=== PATIENT | male | born 1945 | race Caucasian/White ===

== ENCOUNTER 2018-03-17 23:12 | Emergency (ER) | payer MEDICARE, BC ==
[2018-03-18] MEDS ORDERED: Aspirin 81 mg CHEW TAB* 81 MG TAB.CHEW PO ONE (00:23)
--- NOTE | 2018-03-18 00:28 | ED ---
HPI Chest Pain - HPI Summary HPI Summary: This is onelia Degroot documenting for attending Toma Braga MD. This patient is a 72 year old M presenting to ED with a chief complaint of substernal CP since 2214. The CC is described as non-radiating, pressure, lasting 10 minutes. Currently, he has no pain. The patient rates the pain 0/10 in severity. Symptoms aggravated by nothing. Symptoms alleviated by nothing. Patient reports a flushed face and dizziness. Patient denies difficulty breathing, cold sweat, and cough. - History of Current Complaint Chief Complaint: EDChestPainROMI Time Seen by Provider: 03/18/18 00:11 Hx Obtained From: Patient Onset/Duration: Started Hours Ago - at 2214, Resolved - patient is pain free Timing: Lasting Minutes - 10 minutes Current Severity: None Pain Intensity: 0 Pain Scale Used: 0-10 Numeric Chest Pain Location: Discrete at: - substernal CP Chest Pain Radiates: No Character: Pressure/Squeezing Aggravating Factor(s): Nothing Alleviating Factor(s): Nothing Associated Signs and Symptoms: Positive: Other: - Patient reports a flushed face and dizziness. Patient denies difficulty breathing, cold sweat, and cough. - Allergy/Home Medications Allergies/Adverse Reactions: Allergies Allergy/AdvReac Type Severity Reaction Status Date / Time Sulfa (Sulfonamide Allergy Rash Verified 03/17/18 23:15 Antibiotics) PMH/Surg Hx/FS Hx/Imm Hx Endocrine/Hematology History: Denies: Hx Diabetes Cardiovascular History: Denies: Hx Coronary Artery Disease, Hx Hypertension Infectious Disease History: No Infectious Disease History: Denies: Traveled Outside the [place] in Last 30 Days - Family History Known Family History: Positive: Other Family History: Heart attack brother at age 53 - Social History Alcohol Use: Daily - Wine Hx Substance Use: No Hx Tobacco Use: No Review of Systems Positive: Other - flushed face; denies cold sweat Positive: Chest Pain - substernal CP Positive: Other - denies difficulty breathing. Negative: Cough Neurological: Other - dizziness All Other Systems Reviewed And Are Negative: Yes Physical Exam - Summary Physical Exam Summary: VITAL SIGNS: Reviewed. GENERAL: Patient is a well-developed and nourished MALE who is lying comfortable in the stretcher. Patient is not in any acute respiratory distress. HEAD AND FACE: No signs of trauma. No ecchymosis, hematomas or skull depressions. No sinus tenderness. EYES: PERRLA, EOMI x 2, No injected conjunctiva, no nystagmus. EARS: Hearing grossly intact. Ear canals and tympanic membranes are within normal limits. MOUTH: Oropharynx within normal limits. NECK: Supple, trachea is midline, no adenopathy, no JVD, no carotid bruit, no c- spine tenderness, neck with full ROM. CHEST: Symmetric, no tenderness at palpation LUNGS: Clear to auscultation bilaterally. No wheezing or crackles. CVS: Regular rate and rhythm, S1 and S2 present, no murmurs or gallops appreciated. ABDOMEN: Soft, non-tender. No signs of distention. No rebound no guarding, and no masses palpated. Bowel sounds are normal. EXTREMITIES: FROM in all major joints, no edema, no cyanosis or clubbing. NEURO: Alert and oriented x 3. No acute neurological deficits. Speech is normal and follows commands. SKIN: Dry and warm Triage Information Reviewed: Yes Vital Signs On Initial Exam: Initial Vitals Temp Pulse Resp BP Pulse Ox 97.9 F 101 18 115/67 93 03/17/18 23:15 03/17/18 23:15 03/17/18 23:15 03/17/18 23:15 03/17/18 23:15 Vital Signs Reviewed: Yes Diagnostics - Vital Signs Vital Signs Temp Pulse Resp BP Pulse Ox 03/17/18 23:15 97.9 F 101 18 115/67 93 - Laboratory Result Diagrams: 03/18/18 00:36 03/18/18 00:36 Lab Statement: Any lab studies that have been ordered have been reviewed, and results considered in the medical decision making process. - Radiology CXR Radiology Interpretation Completed By: ED Physician - No acute processes. Pending radiologist official interpretation. - EKG 2323 Cardiac Rate: NL - 99 BPM EKG Rhythm: Sinus Rhythm EKG Interpretation: RBBB Re-Evaluation - Re-Evaluation First Eval Re-Evaluation Time: 02:07 Comment: Bloodwork came back normal. The patient is asymptomatic in the ED and is anxious to go home. The patient was advised to stay for second trop around 0500. Second Eval Re-Evaluation Time: 05:04 Comment: The patient was asymptomatic in the ER. Discussed plan for discharge. Chest Pain Course/Dx - Course Assessment/Plan: This patient is a 72 yo M with no PMHx. He is in the ED for a 10 minute episode of substernal CP. He appears flushed and has no other sx. The CP is non-radiating. The EKG was unremarkable. The 1st and 2nd trop was negative. The patient is pain free here in the ED. Given ASA. The patient will be discharged with instructions to follow up with cardio for a stress test as an outpatient. - Chest Pain Differential Diagnosis/HQI/PQRI: Other: - atypical CP - Diagnoses Provider Diagnoses: Atypical chest pain Discharge - Sign-Out/Discharge Documenting (check all that apply): Patient Departure - Discharge Plan Condition: Stable Disposition: HOME Patient Education Materials: Chest Pain (ED) Referrals: Francis Lundberg MD [Primary Care Provider] - (Follow up with your primary care physician in 1-2 days.) Additional Instructions: I RECOMMEND FOR YOU TO TAKE A STRESS TEST AN OUTPATIENT. RETURN TO THE EMERGENCY DEPARTMENT FOR CHANGING OR WORSENING SYMPTOMS.
[2018-03-18 00:50] LABS: ABS Basophils 0 10^3/ul (0-0.2); ABS Eosinophils 0.2 10^3/ul (0-0.6); ABS Lymphocytes 1.3 10^3/ul (1.0-4.8); ABS Monocytes 0.7 10^3/ul (0-0.8); ABS Neutrophils 3.5 10^3/ul (1.5-7.7); ABS Nucleated RBC 0 10^3/ul; Eosinophil % 3.3 % (0-6); Hematocrit 43 % (42-52); Lymphocyte % 22.4 % (25-47); Mean Corpuscular HGB Conc 35 g/dl (31-36); Mean Corpuscular Hemoglobin 35 pg (27-31); Mean Corpuscular Volume 99 fL (80-94); Mean Platelet Volume 7.2 um3 (7.4-10.4); Nucleated Red Blood Cells % 0; Platelet Count 182 10^3/ul (150-450); Red Blood Count 4.36 10^6/ul (4.00-5.40); Red Cell Distribution Width 13 % (10.5-15); White Blood Count 5.8 10^3/ul (3.5-10.8)
[2018-03-18 00:58] LABS: INR 0.87 (0.77-1.02)
[2018-03-18 01:08] LABS: EGFR Non-African American 68.3 (>60)
[2018-03-18 05:18] VITALS: BP 121/78
--- NOTE | 2018-03-18 07:39 | RAD ---
HISTORY: CP, chest pain COMPARISONS: April 04, 2012 VIEWS: 1: frontal portable view of the chest at 12:41 AM FINDINGS: LINES AND TUBES: None. CARDIOMEDIASTINAL SILHOUETTE: The cardiomediastinal silhouette is normal for portable technique. PLEURA: The costophrenic angles are sharp. No pleural abnormalities are noted. LUNG PARENCHYMA: The lungs are clear. ABDOMEN: The upper abdomen is clear. There is no subphrenic gas. BONES AND SOFT TISSUES: Degenerative changes are noted IMPRESSION: NO ACTIVE CARDIOPULMONARY DISEASE. R0
== END 2018-03-18 05:20 | disposition home or self-care (01) ==
LOC: ED 23:12
DX: R07.89 Other chest pain (principal); R42 Dizziness and giddiness
CPT/HCPCS: 36415; 71045; 80053; 82550; 84484; 85025; 85610; 85730; 93005; 99283; A9270-GY

== ENCOUNTER 2018-03-30 20:31 | Emergency (ER) | payer MEDICARE, BC ==
[2018-03-30 22:19] LABS: ABS Basophils 0.1 10^3/ul (0-0.2); ABS Eosinophils 0.2 10^3/ul (0-0.6); ABS Lymphocytes 1.3 10^3/ul (1.0-4.8); ABS Monocytes 0.6 10^3/ul (0-0.8); ABS Nucleated RBC 0 10^3/ul; Hematocrit 43 % (42-52); Hemoglobin 15.2 g/dl (14.0-18.0); Lymphocyte % 24.6 % (25-47); Mean Corpuscular HGB Conc 35 g/dl (31-36); Mean Corpuscular Hemoglobin 35 pg (27-31); Mean Corpuscular Volume 100 fL (80-94); Mean Platelet Volume 7.3 um3 (7.4-10.4); Nucleated Red Blood Cells % 0.1; Platelet Count 198 10^3/ul (150-450); Red Blood Count 4.33 10^6/ul (4.00-5.40); Red Cell Distribution Width 13 % (10.5-15); White Blood Count 5.2 10^3/ul (3.5-10.8)
[2018-03-30 22:24] LABS: INR 0.92 (0.77-1.02)
[2018-03-30 22:30] LABS: EGFR Non-African American 66.1 (>60)
--- NOTE | 2018-03-31 03:46 | ED ---
HPI Chest Pain - HPI Summary HPI Summary: Patient complains of one episode of bilateral chest pressure radiating to bilateral upper extremities starting at 6 PM, that lasted 10-15 minutes. Patient was at rest, took ASA 324 mg at home. Symptoms have resolved, no active CP here in the ED. Patient evaluated here in the ED for same symptoms 2 weeks ago. Denies SOB, fever, cough, sore throat, N/V's /D, diaphoresis, abdominal pain, change in urine or BM. Patient had been hiking earlier in the park without any CP or SOB. Chest pain came on 2-3 hours after exertion. Medical history is none. Never smoker. Occasional EtOH, denies any legal or illegal stimulants. - History of Current Complaint Chief Complaint: EDChestPainROMI Time Seen by Provider: 03/30/18 21:45 Hx Obtained From: Patient Onset/Duration: Started Hours Ago Timing: Lasting Minutes Initial Severity: Mild Current Severity: Mild Pain Intensity: 1 Pain Scale Used: 0-10 Numeric Chest Pain Location: Left Anterior, Right Anterior Chest Pain Radiates: Yes Chest Pain Radiates To:: Shoulder Character: Pressure/Squeezing Aggravating Factor(s): Nothing Alleviating Factor(s): Nothing Associated Signs and Symptoms: Positive: Chest Pain - Allergy/Home Medications Allergies/Adverse Reactions: Allergies Allergy/AdvReac Type Severity Reaction Status Date / Time Sulfa (Sulfonamide Allergy Rash Verified 03/30/18 20:47 Antibiotics) Home Medications: Home Medications Lisinopril 20 mg PO DAILY 03/31/18 [History Confirmed 03/31/18] PMH/Surg Hx/FS Hx/Imm Hx Endocrine/Hematology History: Denies: Hx Anticoagulant Therapy, Hx Diabetes Cardiovascular History: Denies: Hx Cardiac Arrest, Hx Coronary Artery Disease, Hx Hypertension History: Denies: Hx Dialysis Neurological History: Denies: Hx CVA Infectious Disease History: No Infectious Disease History: Denies: Traveled Outside the [place] in Last 30 Days - Family History Known Family History: Positive: Other Family History: Heart attack brother at age 53 - Social History Alcohol Use: Daily Hx Substance Use: No Substance Use Type: Reports: None Hx Tobacco Use: No Smoking Status (MU): Never Smoked Tobacco Review of Systems Constitutional: Negative Eyes: Negative ENT: Negative Positive: Chest Pain Respiratory: Negative Gastrointestinal: Negative Genitourinary: Negative Musculoskeletal: Negative Skin: Negative Neurological: Negative Psychological: Normal All Other Systems Reviewed And Are Negative: Yes Physical Exam - Summary Physical Exam Summary: Chest nontender to palpation. No pain with use of pectoral muscles. Triage Information Reviewed: Yes Vital Signs On Initial Exam: Initial Vitals Temp Pulse Resp BP Pulse Ox 97.6 F 103 18 112/71 94 03/30/18 20:42 03/30/18 20:42 03/30/18 20:42 03/30/18 20:42 03/30/18 20:42 Vital Signs Reviewed: Yes Appearance: Positive: Well-Appearing Skin: Positive: Warm Head/Face: Positive: Normal Head/Face Inspection Eyes: Positive: Normal Neck: Positive: Supple Respiratory/Lung Sounds: Positive: Clear to Auscultation Cardiovascular: Positive: Normal Abdomen Description: Positive: Nontender Musculoskeletal: Positive: Normal Neurological: Positive: Normal Psychiatric: Positive: Normal AVPU Assessment: Alert - Cadwell Coma Scale Best Eye Response: 4 - Spontaneous Best Motor Response: 6 - Obeys Commands Best Verbal Response: 5 - Oriented Coma Scale Total: 15 Diagnostics - Vital Signs Vital Signs Temp Pulse Resp BP Pulse Ox 03/31/18 01:00 75 9 94 03/31/18 00:46 77 17 128/85 95 03/31/18 00:16 78 15 136/81 97 03/31/18 00:00 79 19 94 03/30/18 23:46 80 18 130/82 95 03/30/18 23:16 79 14 133/75 95 03/30/18 23:00 84 12 95 03/30/18 22:46 80 13 121/82 95 03/30/18 22:16 85 8 134/82 94 03/30/18 22:00 90 14 94 03/30/18 21:46 92 20 143/86 94 03/30/18 20:42 97.6 F 103 18 112/71 94 - Laboratory Lab Results: Lab Results 03/30/18 03/30/18 03/30/18 Range/Units 22:04 22:04 22:04 WBC 5.2 (3.5-10.8) 10^3/ul RBC 4.33 (4.00-5.40) 10^6/ul Hgb 15.2 (14.0-18.0) g/dl Hct 43 (42-52) % MCV 100 H (80-94) fL MCH 35 H (27-31) pg MCHC 35 (31-36) g/dl RDW 13 (10.5-15) % Plt Count 198 (150-450) 10^3/ul MPV 7.3 L (7.4-10.4) um3 Neut % (Auto) 59.0 (38-83) % Lymph % (Auto) 24.6 L (25-47) % [place] % (Auto) 11.2 H (0-7) % Eos % (Auto) 4.0 (0-6) % Baso % (Auto) 1.2 (0-2) % Absolute Neuts (auto) 3.0 (1.5-7.7) 10^3/ul Absolute Lymphs (auto) 1.3 (1.0-4.8) 10^3/ul Absolute Monos (auto) 0.6 (0-0.8) 10^3/ul Absolute Eos (auto) 0.2 (0-0.6) 10^3/ul Absolute Basos (auto) 0.1 (0-0.2) 10^3/ul Absolute Nucleated RBC 0 10^3/ul Nucleated RBC % 0.1 INR (Anticoag Therapy) 0.92 (0.77-1.02) Sodium 140 (135-145) mmol/L Potassium 3.7 (3.5-5.0) mmol/L Chloride 107 (101-111) mmol/L Carbon Dioxide 23 (22-32) mmol/L Anion Gap 10 (2-11) mmol/L BUN 18 (6-24) mg/dL Creatinine 1.09 (0.67-1.17) mg/dL Est GFR ( Amer) 80.0 (>60) Est GFR (Non-Af Amer) 66.1 (>60) BUN/Creatinine Ratio 16.5 (8-20) Glucose 93 (70-100) mg/dL Lactic Acid (0.5-2.0) mmol/L Calcium 9.2 (8.6-10.3) mg/dL Total Bilirubin 0.70 (0.2-1.0) mg/dL AST 28 (13-39) U/L ALT 26 (7-52) U/L Alkaline Phosphatase 32 L (34-104) U/L Troponin I 0.01 (<0.04) ng/mL B-Natriuretic Peptide ( - 100) pg/mL Total Protein 7.3 (6.4-8.9) g/dL Albumin 4.4 (3.2-5.2) g/dL Globulin 2.9 (2-4) g/dL Albumin/Globulin Ratio 1.5 (1-3) TSH 4.80 (0.34-5.60) mcIU/mL 03/30/18 03/30/18 03/31/18 Range/Units 22:04 22:04 00:42 WBC (3.5-10.8) 10^3/ul RBC (4.00-5.40) 10^6/ul Hgb (14.0-18.0) g/dl Hct (42-52) % MCV (80-94) fL MCH (27-31) pg MCHC (31-36) g/dl RDW (10.5-15) % Plt Count (150-450) 10^3/ul MPV (7.4-10.4) um3 Neut % (Auto) (38-83) % Lymph % (Auto) (25-47) % [place] % (Auto) (0-7) % Eos % (Auto) (0-6) % Baso % (Auto) (0-2) % Absolute Neuts (auto) (1.5-7.7) 10^3/ul Absolute Lymphs (auto) (1.0-4.8) 10^3/ul Absolute Monos (auto) (0-0.8) 10^3/ul Absolute Eos (auto) (0-0.6) 10^3/ul Absolute Basos (auto) (0-0.2) 10^3/ul Absolute Nucleated RBC 10^3/ul Nucleated RBC % INR (Anticoag Therapy) (0.77-1.02) Sodium (135-145) mmol/L Potassium (3.5-5.0) mmol/L Chloride (101-111) mmol/L Carbon Dioxide (22-32) mmol/L Anion Gap (2-11) mmol/L BUN (6-24) mg/dL Creatinine (0.67-1.17) mg/dL Est GFR ( Amer) (>60) Est GFR (Non-Af Amer) (>60) BUN/Creatinine Ratio (8-20) Glucose (70-100) mg/dL Lactic Acid 1.8 (0.5-2.0) mmol/L Calcium (8.6-10.3) mg/dL Total Bilirubin (0.2-1.0) mg/dL AST (13-39) U/L ALT (7-52) U/L Alkaline Phosphatase (34-104) U/L Troponin I 0.02 (<0.04) ng/mL B-Natriuretic Peptide 13 ( - 100) pg/mL Total Protein (6.4-8.9) g/dL Albumin (3.2-5.2) g/dL Globulin (2-4) g/dL Albumin/Globulin Ratio (1-3) TSH (0.34-5.60) mcIU/mL Result Diagrams: 03/30/18 22:04 03/30/18 22:04 Lab Statement: Any lab studies that have been ordered have been reviewed, and results considered in the medical decision making process. - Radiology cxr Xray Interpretation: No Acute Changes Radiology Interpretation Completed By: ED Physician - EKG 1 Cardiac Rate: NL EKG Rhythm: Sinus Rhythm Ectopy: None EKG Interpretation: RBBB Chest Pain Course/Dx - Course Course Of Treatment: Patient complains of one episode of bilateral chest pressure radiating to bilateral upper extremities starting at 6 PM, that lasted 10-15 minutes. Patient was at rest, took ASA 324 mg at home. Symptoms have resolved, no active CP here in the ED. Patient evaluated here in the ED for same symptoms 2 weeks ago. Denies SOB, fever, cough, sore throat, N/V's /D , diaphoresis, abdominal pain, change in urine or BM. Patient had been hiking earlier in the park without any CP or SOB. Chest pain came on 2-3 hours after exertion. Medical history is none. Never smoker. Occasional EtOH, denies any legal or illegal stimulants. Physical exam: Chest nontender to palpation. No pain with use of pectoral muscles. Vital signs within normal limits and stable. Chest x-ray negative. Labs and imaging unremarkable. Serial cardiac troponin is negative. Heart score 2. Patient was seen here 03/17/18 for same symptoms and was advised to get stress test. Will be advised to do same again - Diagnoses Provider Diagnoses: Chest pain Discharge - Sign-Out/Discharge Documenting (check all that apply): Patient Departure - Discharge Plan Condition: Stable Disposition: HOME Patient Education Materials: Chest Pain (ED) Referrals: Francis Lundberg MD [Primary Care Provider] - Additional Instructions: Follow-up with primary care to arrange for stress test for further evaluation. Return to the ED for any new or worsening symptoms - Billing Disposition and Condition Condition: STABLE Disposition: Home
[2018-03-31 04:40] VITALS: BP 142/81
--- NOTE | 2018-03-31 07:25 | RAD ---
INDICATION: Chest pain. COMPARISON: Comparison is made with a prior study from March 18, 2018. TECHNIQUE: A portable view of the chest was obtained. FINDINGS: Cardiac and mediastinal contours appear to be within normal limits. The lungs are underinflated and grossly clear. No pleural effusion is seen. IMPRESSION: NO EVIDENCE FOR ACUTE DISEASE. R0
== END 2018-03-31 04:40 | disposition home or self-care (01) ==
LOC: ED 20:31
DX: R07.9 Chest pain, unspecified (principal); M25.519 Pain in unspecified shoulder
CPT/HCPCS: 36415; 71045; 80053; 83605; 83880; 84443; 84484; 85025; 85610; 93005; 99283

== ENCOUNTER 2018-04-18 20:51 | Inpatient (IN) | payer MEDICARE, BC ==
[2018-04-18] MEDS ORDERED: Amiodarone 360 MG IVPREMIX* 360 MG/200 ML BAG IV ONE ×2 (21:12→21:16)
[2018-04-18] MEDS ORDERED: Amiodarone IV VIAL* 3 ML ONE (21:12)
--- NOTE | 2018-04-18 21:14 | ED ---
HPI Chest Pain - HPI Summary HPI Summary: A 72 y/o male presents to ED c/o chest pain reaching / in severity. In the ED room, the patient has a pulse of 105 BPM, O2 saturation of 92% and blood pressure of 118/69. As per triage, "Pt stated that he feels that his heart acts up and then feels sweaty and dizzy. Pt states that he has had this happened before and is scheduled for stress test tomorrow morning. Pt seen here for same ". According to the patient, he is experiencing chest pain that he characterizes as pressure. Pt denies any SOB. His is here with him, MD will come back when she comes to ED room. As per nursing staff, patient stated he was dizzy, sweaty and stated his face was flushed during EKG. Upon arrival to ED, patient was taken to area by aid for EKG. At this point the EKG revealed monomorphic tachycardia. Patient was moved immediately to room 14 in ED. Upon arrival to room 14, patient was having normal sinus rhythm of 104. Amiodarone and bolus drip was started as per protocol. In the ED room, the patient has a pulse of 88 BPM, O2 saturation of 96% and blood pressure of 121/71. As per , this is the patients 3rd trip to ED. The patient was sitting on his Lazy boy chair at home when he started flushing. He also was diaphoretic (slightly) and felt "weirdness" in his chest. They decided to wait 20 minutes because they thought the symptoms would go away but it did not. When he stood up to go to [facility], the patient experienced more dizziness. Denies any SOB or LOC. Last two times patient was in [facility] was for pretty much same symptoms. First time (03/23) and second time (03/30) with both times pain not being very long, lasting approximately 10 minutes. Today, his chest pain has not went away and he experiences neck pain. Patient goes to Chiropractor for neck and shoulder issues, however, does not need to go as often. Patient still takes Lisinopril, no daily Aspirin. No PMHx of heart issues. - History of Current Complaint Chief Complaint: EDChestPainROMI Hx Obtained From: Patient Onset/Duration: Started Hours Ago, Still Present Timing: Constant Initial Severity: Mild Current Severity: Mild Pain Intensity: 1 Pain Scale Used: 0-10 Numeric Chest Pain Location: Diffuse Chest Pain Radiates: No Character: Pressure/Squeezing Aggravating Factor(s): Nothing Alleviating Factor(s): Nothing Associated Signs and Symptoms: Positive: Chest Pain, Dizziness. Negative: Shortness of Breath, Fever - Allergy/Home Medications Allergies/Adverse Reactions: Allergies Allergy/AdvReac Type Severity Reaction Status Date / Time Sulfa (Sulfonamide Allergy Rash Verified 04/18/18 21:00 Antibiotics) Home Medications: Home Medications Lisinopril 20 mg PO DAILY 04/18/18 [History Confirmed 04/18/18] PMH/Surg Hx/FS Hx/Imm Hx Endocrine/Hematology History: Denies: Hx Anticoagulant Therapy, Hx Diabetes Cardiovascular History: Denies: Hx Cardiac Arrest, Hx Coronary Artery Disease, Hx Hypertension History: Denies: Hx Dialysis Neurological History: Denies: Hx CVA - Surgical History Surgery Procedure, Year, and Place: As per , no prior surgeries noted. Infectious Disease History: No Infectious Disease History: Denies: Traveled Outside the [place] in Last 30 Days - Family History Known Family History: Positive: Other Family History: Heart attack brother at age 53 - Social History Alcohol Use: Daily Hx Substance Use: No Substance Use Type: Reports: None Hx Tobacco Use: No Smoking Status (MU): Never Smoked Tobacco Review of Systems Positive: Skin Diaphoresis. Negative: Fever Positive: Chest Pain Negative: Shortness Of Breath Positive: Other - POSITIVE: Neck pain Neurological: Other - POSITIVE: Dizziness; NEGATIVE: LOC All Other Systems Reviewed And Are Negative: Yes Physical Exam - Summary Physical Exam Summary: VITAL SIGNS: Reviewed. GENERAL: Patient is a well-developed and nourished male who is lying comfortable in the stretcher. Patient is not in any acute respiratory distress. HEAD AND FACE: No signs of trauma. No ecchymosis, hematomas or skull depressions. No sinus tenderness. EYES: PERRLA, EOMI x 2, No injected conjunctiva, no nystagmus. EARS: Hearing grossly intact. Ear canals and tympanic membranes are within normal limits. MOUTH: Oropharynx within normal limits. NECK: Supple, trachea is midline, no adenopathy, no JVD, no carotid bruit, no c- spine tenderness, neck with full ROM. CHEST: Symmetric, no tenderness at palpation LUNGS: Clear to auscultation bilaterally. No wheezing or crackles. CVS: tachycardic, S1 and S2 present, no murmurs or gallops appreciated. ABDOMEN: Soft, non-tender. No signs of distention. No rebound no guarding, and no masses palpated. Bowel sounds are normal. EXTREMITIES: FROM in all major joints, no edema, no cyanosis or clubbing. NEURO: Alert and oriented x 3. No acute neurological deficits. Speech is normal and follows commands. SKIN: Dry and warm Triage Information Reviewed: Yes Vital Signs On Initial Exam: Initial Vitals Temp Pulse Resp BP Pulse Ox 97.8 F 175 20 000/00 96 04/18/18 20:54 04/18/18 20:54 04/18/18 20:54 04/18/18 20:54 04/18/18 20:54 Vital Signs Reviewed: Yes Diagnostics - Vital Signs Vital Signs Temp Pulse Resp BP Pulse Ox 04/18/18 20:54 97.8 F 175 20 000/00 96 - Laboratory Result Diagrams: 04/18/18 21:24 04/18/18 21:24 Lab Statement: Any lab studies that have been ordered have been reviewed, and results considered in the medical decision making process. - Radiology CXR Radiology Interpretation Completed By: ED Physician - No acute process. Pending official report. - EKG 2101 Cardiac Rate: Tachycardia - 185 BPM EKG Rhythm: V-Tachycardia EKG Interpretation: monomorphic ventricular tachycardia 2110 Cardiac Rate: Tachycardia - 104 EKG Rhythm: Sinus Rhythm EKG Interpretation: RBBB Chest Pain Course/Dx - Course Course Of Treatment: A 72 y/o male presents to ED c/o chest pain reaching 1/10 in severity. In the ED room, the patient has a pulse of 105 BPM, O2 saturation of 92% and blood pressure of 118/69. A CXR revealed no acute process. An EKG revealed monomorphic ventricular tachycardia with a rate of 185 BPM. Another EKG revealed tachycardia at 104 BPM and RBBB. In the ED course, the patient recieved Amiodarone, Aspirin, Lopressor and IV fluids. Patient care was discussed with hospitalist, Dr. Ruiz, who accepts patient for admission. He also recommended consulting with cardiology. Patient care was also discussed with Dr. Hargrove who recommends patient be admitted to the hospitalist. Additionally recommends Amiodarone. Patient will be admitted with a diagnosis of ventricular tachycardia. Patient is agreeable with this plan. - Diagnoses Provider Diagnoses: Ventricular tachycardia - Provider Notifications Discussed Care Of Patient With: Sal Ruiz Time Discussed With Above Provider: 20:39 Instructed by Provider To: Other - Accepts patient for admission. Recommends consulting with cardiology. Consult at [address] Hargrove who recommends patient for admission to the hospitalist. Also recommends Amiodarone. - Critical Care Time Critical Care Time: 30-74 min - 35 MINUTES Discharge - Sign-Out/Discharge Documenting (check all that apply): Patient Departure - ADMIT - Discharge Plan Condition: Stable Disposition: ADMITTED TO [facility] - Attestation Statements Document Initiated by Scribe: Yes Documenting Scribe: Jorge Guzman Provider For Whom Scribe is Documenting (Include Credential): Toma Braga Scribe Attestation: Jorge Betts, scribed for Toma Braga on 04/18/18 at 5059.
[2018-04-18] MEDS ORDERED: NS 0.9% 1000 ML* 1,000 ML IV ONE (21:15)
[2018-04-18] MEDS ORDERED: Amiodarone 150 MG IVPREMIX* 150 MG/100 ML BAG IV ONE (21:16)
[2018-04-18] MEDS ORDERED: Aspirin 81 mg CHEW TAB* 81 MG TAB.CHEW PO ONE (21:19)
[2018-04-18 21:36] LABS: ABS Basophils 0.1 10^3/ul (0-0.2); ABS Eosinophils 0.2 10^3/ul (0-0.6); ABS Lymphocytes 1.8 10^3/ul (1.0-4.8); ABS Monocytes 0.7 10^3/ul (0-0.8); ABS Neutrophils 3.3 10^3/ul (1.5-7.7); ABS Nucleated RBC 0 10^3/ul; Eosinophil % 3.3 % (0-6); Hematocrit 44 % (42-52); Hemoglobin 15.4 g/dl (14.0-18.0); Lymphocyte % 29.1 % (25-47); Mean Corpuscular HGB Conc 35 g/dl (31-36); Mean Corpuscular Hemoglobin 35 pg (27-31); Mean Corpuscular Volume 99 fL (80-94); Mean Platelet Volume 7.4 um3 (7.4-10.4); Nucleated Red Blood Cells % 0.1; Platelet Count 192 10^3/ul (150-450); Red Blood Count 4.45 10^6/ul (4.00-5.40); Red Cell Distribution Width 13 % (10.5-15); White Blood Count 6.1 10^3/ul (3.5-10.8)
[2018-04-18 21:44] LABS: INR 0.92 (0.77-1.02)
[2018-04-18 21:48] LABS: EGFR Non-African American 47.6 (>60)
[2018-04-18] MEDS ORDERED: Metoprolol Tartrate TAB* 25 MG PO ONE (22:45)
--- NOTE | 2018-04-18 22:53 | HP ---
H&P (Free Text) History and Physical: PCP: Darrell Lundberg MD Date/Time: 04/18/2018 2240 CC: near syncope HPI: Mr Brewster is a 72YO male HX HTN & early undiagnosed dementia (progressive short-term memory problems x ~3+ years) who presents to [facility] for the 3rd time in a month for sudden onset chest discomfort associated with palpitations, sweating, light-headedness, facial flushing, but no SOB or N/V. He was discharged without finding 03/23 & 03/30/2018. However tonight it became ~1900 while sitting in a recliner after dinner. Upon arrival to [facility] an ECG was obtained revealing sustained VT. He denied overt chest pain. Prior to being cardioverted he spontaneously returned to sinus rhythm. Amiodarone 150mg bolus and GTT @1mg/hr were initiated. Eliza Hargrove MD cardiology was consulted by ED and advised metoprolol IR 25mg Q8H & will arrange evaluation in AM. 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 Father passed in his sleep in his 80s w/ HX CAD/DC. Sister is alive & healthy at 63. Brother is alive at 60 w / HX CAD/DC/stent. ROS: as above, otherwise reviewed and all were negative vitals: Vital Signs Temp 36.6 C 04/18/18 20:54 Pulse 82 04/18/18 22:30 Resp 17 04/18/18 22:30 BP 123/70 04/18/18 22:30 Pulse Ox 96 04/18/18 22:30 Intake & Output 04/17/18 04/18/18 04/18/18 23:59 11:59 23:59 Intake Total 200 Balance 200 Weight 72.575 kg Intake: IV Fluids 100 IVPB 100 Constitutional: NAD, normally developed, well-nourished elderly white male HEENM: atraumatic; sclera/conjunctiva: anicteric/clear; hearing: clinically intact; oropharynx: clear, mucosa moist Neck: soft tissue: non-tender; thyroid: normal, non-tender Pulmonary: clear to auscultation bilaterally, good aeration, no accessory muscle use CV: RR/RR, normal S1S2, no carotid bruit, no jugular venous distention, 2+ B DP/ PT, no edema Abdominal: soft, non-distended, non-tender, no rebound/guarding/rigidity, normoactive bowel sounds, no hepatosplenomegaly or masses, no costovertebral angle tenderness Musculoskeletal: general: grossly intact, non-tender Integumental: normal appearance and texture of exposed skin Psychiatric orientation: AA&O to PPS affect: calm mood: pleasant eye contact: good content: reliable, but lacking in details 2nd memory issues memory: impaired responses: timely insight: good Testing: Lab Results 04/18/18 04/18/18 04/18/18 Range/Units 21:24 21:24 21:24 WBC 6.1 (3.5-10.8) 10^3/ul RBC 4.45 (4.00-5.40) 10^6/ul Hgb 15.4 (14.0-18.0) g/dl Hct 44 (42-52) % MCV 99 H (80-94) fL MCH 35 H (27-31) pg MCHC 35 (31-36) g/dl RDW 13 (10.5-15) % Plt Count 192 (150-450) 10^3/ul MPV 7.4 (7.4-10.4) um3 Neut % (Auto) 54.3 (38-83) % Lymph % (Auto) 29.1 (25-47) % Stevens % (Auto) 12.3 H (0-7) % Eos % (Auto) 3.3 (0-6) % Baso % (Auto) 1.0 (0-2) % Absolute Neuts (auto) 3.3 (1.5-7.7) 10^3/ul Absolute Lymphs (auto) 1.8 (1.0-4.8) 10^3/ul Absolute Monos (auto) 0.7 (0-0.8) 10^3/ul Absolute Eos (auto) 0.2 (0-0.6) 10^3/ul Absolute Basos (auto) 0.1 (0-0.2) 10^3/ul Absolute Nucleated RBC 0 10^3/ul Nucleated RBC % 0.1 INR (Anticoag Therapy) 0.92 (0.77-1.02) APTT 28.8 (26.0-36.3) seconds Sodium 140 (135-145) mmol/L Potassium 3.6 (3.5-5.0) mmol/L Chloride 104 (101-111) mmol/L Carbon Dioxide 22 (22-32) mmol/L Anion Gap 14 H (2-11) mmol/L BUN 20 (6-24) mg/dL Creatinine 1.45 H (0.67-1.17) mg/dL Est GFR ( Amer) 57.6 (>60) Est GFR (Non-Af Amer) 47.6 (>60) BUN/Creatinine Ratio 13.8 (8-20) Glucose 96 (70-100) mg/dL Lactic Acid (0.5-2.0) mmol/L Calcium 9.2 (8.6-10.3) mg/dL Magnesium 2.4 (1.9-2.7) mg/dL Total Bilirubin 0.60 (0.2-1.0) mg/dL AST 25 (13-39) U/L ALT 25 (7-52) U/L Alkaline Phosphatase 35 (34-104) U/L Total Creatine Kinase 243 H (10-223) U/L CK-MB (CK-2) 5.2 (0.6-6.3) ng/mL Troponin I 0.02 (<0.04) ng/mL B-Natriuretic Peptide ( - 100) pg/mL Total Protein 6.9 (6.4-8.9) g/dL Albumin 4.3 (3.2-5.2) g/dL Globulin 2.6 (2-4) g/dL Albumin/Globulin Ratio 1.7 (1-3) TSH 9.01 H (0.34-5.60) mcIU/mL Thyroxine (T4) 5.41 L (6.09-12.23) mcg/mL Blood Type Antibody Screen 04/18/18 04/18/18 04/18/18 Range/Units 21:25 21:25 21:25 WBC (3.5-10.8) 10^3/ul RBC (4.00-5.40) 10^6/ul Hgb (14.0-18.0) g/dl Hct (42-52) % MCV (80-94) fL MCH (27-31) pg MCHC (31-36) g/dl RDW (10.5-15) % Plt Count (150-450) 10^3/ul MPV (7.4-10.4) um3 Neut % (Auto) (38-83) % Lymph % (Auto) (25-47) % Stevens % (Auto) (0-7) % Eos % (Auto) (0-6) % Baso % (Auto) (0-2) % Absolute Neuts (auto) (1.5-7.7) 10^3/ul Absolute Lymphs (auto) (1.0-4.8) 10^3/ul Absolute Monos (auto) (0-0.8) 10^3/ul Absolute Eos (auto) (0-0.6) 10^3/ul Absolute Basos (auto) (0-0.2) 10^3/ul Absolute Nucleated RBC 10^3/ul Nucleated RBC % INR (Anticoag Therapy) (0.77-1.02) APTT (26.0-36.3) seconds Sodium (135-145) mmol/L Potassium (3.5-5.0) mmol/L Chloride (101-111) mmol/L Carbon Dioxide (22-32) mmol/L Anion Gap (2-11) mmol/L BUN (6-24) mg/dL Creatinine (0.67-1.17) mg/dL Est GFR ( Amer) (>60) Est GFR (Non-Af Amer) (>60) BUN/Creatinine Ratio (8-20) Glucose (70-100) mg/dL Lactic Acid 2.5 H* (0.5-2.0) mmol/L Calcium (8.6-10.3) mg/dL Magnesium (1.9-2.7) mg/dL Total Bilirubin (0.2-1.0) mg/dL AST (13-39) U/L ALT (7-52) U/L Alkaline Phosphatase (34-104) U/L Total Creatine Kinase (10-223) U/L CK-MB (CK-2) (0.6-6.3) ng/mL Troponin I (<0.04) ng/mL B-Natriuretic Peptide 14 ( - 100) pg/mL Total Protein (6.4-8.9) g/dL Albumin (3.2-5.2) g/dL Globulin (2-4) g/dL Albumin/Globulin Ratio (1-3) TSH (0.34-5.60) mcIU/mL Thyroxine (T4) (6.09-12.23) mcg/mL Blood Type B Negative Antibody Screen Negative initial ECG, personally reviewed: sustained VT rate 185 w/ attempted spontaneous conversion follup up ECG, personally reviewed: sinus RBBB rate 104, T-wave inversions V1-2 , ST depression V3-4 CXR, personally reviewed: no acute process Impression: 72M HX HTN & early dementia presents in sustained VT DIAGNOSIS & PLAN Primary sustained VT : ICU monitoring : continue amiodarone GTT : metoprolol IR 25mg Q8H : maintain defibrillator pads on patient connected to generator : trend troponin : magnesium 2.4 : 40mg PO potassium chloride to bring K >4.0 : trend lactic acid : ECHO in AM : Eliza Hargrove MD cardiology consulted, will arrange evaluation in AM : supplemental oxygen : supportive care MILLY : IVFs, trend Secondary HTN : continue lisinopril early dementia : PCP to consider initiate donepezil upon outpatient follow up Admission Rational: Inpatient as without the above interventions the risk of impending adverse outcome is unacceptably high; inappropriate for the outpatient setting DVTp: SCDs Code Status: full HCP: Critical Care time: 65minutes with >50% spent at the bedside obtaining a history , performing the examination, advising of diagnosis & treatment options along with risks/benefits/reasoning; remainder spent discussing with ER MD, reviewing labs and radiology exams & performing documentation
[2018-04-18] MEDS ORDERED: Acetaminophen TAB* 325 MG PO PRN (23:27)
[2018-04-18] MEDS ORDERED: Ondansetron ODT TAB* 4 MG PO PRN (23:27)
[2018-04-18] MEDS ORDERED: Potassium Chlor TAB* 20 MEQ TAB.ER PO ONE (23:27)
[2018-04-18] MEDS ORDERED: Melatonin 3 MG TAB PO PRN (23:27)
[2018-04-18] MEDS ORDERED: NS 0.9% 1000 ML* 1,000 ML IV SCH (23:30)
[2018-04-19] MEDS: Amiodarone 360 MG IVPREMIX* 360 MG/200 ML BAG IV SCH ×2 (03:07→13:54)
[2018-04-19] MEDS ORDERED: Omeprazole CAP* 20 MG PO SCH (06:00)
[2018-04-19 06:38] LABS: EGFR Non-African American 51.7 (>60)
[2018-04-19] MEDS: Metoprolol Tartrate TAB* 25 MG PO SCH ×2 (06:39→15:13)
--- NOTE | 2018-04-19 07:49 | RAD ---
Indication: Chest pain. Single frontal view of the chest performed at 2156 hours was reviewed. Comparison is made with previous exam dated March 30, 2018. No mediastinal shift is noted. Heart is of normal size and configuration. Lung jay appear clear. IMPRESSION: NO ACTIVE CARDIOPULMONARY DISEASE IS NOTED. R0
[2018-04-19] MEDS ORDERED: Lisinopril TAB* 10 MG PO SCH (09:00)
--- NOTE | 2018-04-19 10:10 | ECHO ---
Patient: LUCILLE IZAGUIRRE [facility] Rec#: [id number] : 1945 Date: 04/19/2018 Age: 72y Height: 177.8 cm / 70.0 in Weight: 72.6 kg / 160.0 lbs Sex: M BSA: 1.9 Room#: ICU 5 Admit Date#: 04/18/2018 Type: Inpatient Referring: Sal Ruiz MD Reading: Moises Murrieta MD Clothing Examiner: Brittany Keller RN RDCS CC: Francis Lundberg MD Transthoracic Echocardiogram Indication: Abnormal EKG, sustained VT BP: 123/73 HR: 50 Rhythm: Bradycardia Findings History: HTN, early undiagnosed dementia Technical Comments: The study quality is fair. Left Ventricle: The left ventricular chamber size is normal. Mild concentric left ventricular hypertrophy is observed. There is increased basal septal hypertrophy noted without evidence of an increased gradient across the left ventricular outflow tract. There is a focal wall motion abnormality present. There is mildly decreased left ventricular systolic function. The estimated ejection fraction is 45-50%. There is septal flattening of the interventricular septum consistent with right ventricular volume or pressure overload. There is a left ventricular septal wall motion abnormality observed, possibly due to the presence of a right bundle branch block. Abnormal left ventricular diastolic filling is observed, consistent with impaired relaxation. Left Atrium: The left atrial chamber size is normal. Right Ventricle: The right ventricle is mildly dilated. The right ventricular global systolic function is mildly reduced. Right Atrium: The right atrial cavity size is normal. Aortic Valve: The aortic valve is trileaflet. The aortic valve leaflets are mildly thickened. There is aortic annular calcification. There is no evidence of aortic regurgitation. There is no evidence of aortic stenosis. Mitral Valve: The mitral valve leaflets are mildly thickened. There is a trace of mitral regurgitation. There is no evidence of mitral stenosis. Tricuspid Valve: The tricuspid valve leaflets are normal. There is mild tricuspid regurgitation. There is evidence of borderline pulmonary hypertension. There is no tricuspid stenosis. Pulmonic Valve: The pulmonic valve appears normal. There is trace to mild pulmonic regurgitation. There is no pulmonic stenosis. Pericardium: There is no significant pericardial effusion. Aorta: There is no dilatation of the ascending aorta. There is no dilatation of the aortic arch. There is no dilation of the aortic root. Pulmonary Artery: The main pulmonary artery appears normal. Venous: The inferior vena cava appears normal in size. There is an approximate 50% respiratory change in the inferior vena cava dimension. Summary: There was not any prior study for comparison. Conclusions The left ventricular chamber size is normal. Mild concentric left ventricular hypertrophy is observed. There is increased basal septal hypertrophy noted without evidence of an increased gradient across the left ventricular outflow tract. The estimated ejection fraction is 45-50%. Relative hypokinesis of inferior base in A2C and mid to distal inferolateral wall in A3C. There is mildly decreased left ventricular systolic function. There is septal flattening of the interventricular septum consistent with right ventricular volume or pressure overload. Abnormal left ventricular diastolic filling is observed, consistent with impaired relaxation. There is a trace of mitral regurgitation. The right ventricular global systolic function is mildly reduced. There is mild tricuspid regurgitation. There is evidence of borderline pulmonary hypertension. There is trace to mild pulmonic regurgitation. Measurements Name Value Normal Range RVIDd (AP) 2D 3.7 cm (0.9 - 2.6) RVDdMajor (2D) 4.1 cm (2.2 - 4.4) RAd ISD 4CH 4.7 cm (3.4 - 4.9) RA (A4C)W 3.5 cm (2.9 - 4.6) IVSd (2D) 1.2 cm (0.6 - 1) LVPWd (2D) 1.1 cm (0.6 - 1) LVIDd (2D) 4 cm (3.6 - 5.4) LVIDs (2D) 2.2 cm - LV FS (2D) 44 % (25 - 45) Aortic Annulus 2 cm (1.4 - 2.6) Ao root diameter (2D) 3.4 cm (2.1 - 3.5) Ascending Ao 3.4 cm (2.1 - 3.4) Aortic arch 2.9 cm (1.8 - 3.4) LA dimension (AP) 2D 3.4 cm (2.3 - 3.8) LAd ISD 4CH 4.7 cm (2.9 - 5.3) LA ISD 4CH W 3.6 cm (2.5 - 4.5) Name Value Normal Range LA ESV SP 4CH (A/L) 30 ml - LA ESV SP 2CH (A/L) 52 ml - LA ESV BP (A/L) 42 ml - LA ESV BP (A/L) index 22 ml/m2 - LA ESV SP 4CH (MOD) 28 ml - LA ESV SP 2CH (MOD) 50 ml - Name Value Normal Range MV E-wave Vmax 0.73 m/sec - MV deceleration time 270 msec - MV A-wave Vmax 0.74 m/sec - MV E:A ratio 1 ratio - LV septal e' Vmax 0.06 m/sec - LV lateral e' Vmax 0.07 m/sec - LV E:e' septal ratio 12.2 ratio - LV E:e' lateral ratio 10.4 ratio - Name Value Normal Range AV Vmax 1.1 m/sec - AV VTI 25 cm - AV peak gradient 4.5 mmHg - AV mean gradient 2.8 mmHg - LVOT Vmax 0.64 m/sec - LVOT VTI 15.1 cm - LVOT peak gradient 1.6 mmHg - LVOT mean gradient 1 mmHg - JAMES Vmax 0.4 m/sec - Name Value Normal Range TR Vmax 2.6 m/sec - TR peak gradient 27 mmHg - RAP 8 mmHg - RVSP 35 mmHg - IVC diameter 1.6 cm - Name Value Normal Range PV Vmax 0.61 m/sec -
--- NOTE | 2018-04-19 12:24 | PN ---
Objective Active Medications: Acetaminophen (Tylenol Tab*) 650 mg PO Q6H PRN PRN Reason: FEVER/PAIN Sodium Chloride (Ns 0.9% 1000 Ml*) 1,000 mls @ 50 mls/hr IV PER RATE [facility] Last Admin: 04/19/18 10:52 Dose: 50 mls/hr Amiodarone HCl (Nexterone 360 Mg/200 Ml Ivpremix*) 360 mg in 200 mls @ 16.667 mls/hr IV .SEE PROTOCOL [facility] Last Admin: 04/19/18 03:07 Dose: 16.667 mls/hr Melatonin (Melatonin) 3 mg PO BEDTIME PRN; Protocol PRN Reason: Sleep Metoprolol Tartrate (Lopressor Tab*) 25 mg PO Q8H [facility] Last Admin: 04/19/18 06:39 Dose: 25 mg Omeprazole (Prilosec Cap*) 20 mg PO DAILY@0600 [facility] Last Admin: 04/19/18 06:39 Dose: 20 mg Ondansetron HCl (Zofran Odt Tab*) 4 mg PO Q6H PRN PRN Reason: n/v Vital Signs - 8 hr 04/19/18 04/19/18 04/19/18 04:30 04:46 05:00 Temperature Pulse Rate 52 54 53 Respiratory 17 17 10 Rate Blood Pressure 131/70 127/66 142/75 (mmHg) O2 Sat by Pulse 99 99 99 Oximetry 04/19/18 04/19/18 04/19/18 05:15 05:30 05:45 Temperature Pulse Rate 52 53 53 Respiratory 11 12 9 Rate Blood Pressure 125/73 143/79 139/72 (mmHg) O2 Sat by Pulse 99 100 99 Oximetry 04/19/18 04/19/18 04/19/18 06:00 06:16 06:30 Temperature Pulse Rate 55 53 56 Respiratory 14 13 11 Rate Blood Pressure 149/75 136/71 147/78 (mmHg) O2 Sat by Pulse 99 99 99 Oximetry 04/19/18 04/19/18 04/19/18 06:45 07:00 07:15 Temperature Pulse Rate 55 53 50 Respiratory 16 14 16 Rate Blood Pressure 137/73 143/80 133/77 (mmHg) O2 Sat by Pulse 97 98 97 Oximetry 04/19/18 04/19/18 04/19/18 07:30 07:45 08:00 Temperature 98 F Pulse Rate 51 52 49 Respiratory 16 12 14 Rate Blood Pressure 141/80 122/67 114/65 (mmHg) O2 Sat by Pulse 97 96 98 Oximetry 04/19/18 04/19/18 04/19/18 08:15 08:30 08:45 Temperature Pulse Rate 49 51 49 Respiratory 13 12 15 Rate Blood Pressure 124/68 123/73 123/72 (mmHg) O2 Sat by Pulse 97 97 97 Oximetry 04/19/18 04/19/18 04/19/18 09:00 09:15 09:30 Temperature Pulse Rate 48 51 50 Respiratory 17 14 16 Rate Blood Pressure 123/69 132/74 124/71 (mmHg) O2 Sat by Pulse 96 97 97 Oximetry 04/19/18 04/19/18 04/19/18 10:00 10:01 10:15 Temperature Pulse Rate 54 56 52 Respiratory 24 25 14 Rate Blood Pressure 145/71 126/71 (mmHg) O2 Sat by Pulse 96 97 96 Oximetry 04/19/18 04/19/18 04/19/18 10:30 10:45 11:00 Temperature Pulse Rate 53 52 50 Respiratory 17 16 19 Rate Blood Pressure 130/70 129/71 125/74 (mmHg) O2 Sat by Pulse 97 97 97 Oximetry 04/19/18 04/19/18 04/19/18 11:15 11:30 11:43 Temperature Pulse Rate 50 48 Respiratory 17 13 16 Rate Blood Pressure 115/68 124/69 (mmHg) O2 Sat by Pulse 95 98 Oximetry Oxygen Devices in Use Now: None Result Diagrams: 04/18/18 21:24 04/19/18 06:02 Microbiology and Other Data: Microbiology 04/18/18 23:36 Nasal Screen MRSA (PCR) - Final Nasal Mrsa Not Detected Assess/Plan/Problems-Billing Assessment: This is a 72 year old man with mild dementia and no other significant medical history that presneted to the ER on 3 occasions for palpitations, light- headedness and flushing found to be in sustained ventricular tachycardia that spontaneously converted. - Patient Problems (1) Sustained ventricular tachycardia Code(s): I47.2 - VENTRICULAR TACHYCARDIA SNOMED Code(s): 865608964 Comment: - Amiodarone 150mg push and drip initiated - Continue BB - Goal Mg>2 and K>4 - Consult with cardiology, Dr. Magyadah, appreciated - ECHO shows wall motion abnormality, will have cardiac cath today with Dr. Quinones as culprit is likely CAD - Currently SB on tele, continue with pads in place, no further ectopy noted (2) Hypertension Code(s): I10 - ESSENTIAL (PRIMARY) HYPERTENSION SNOMED Code(s): 85644018 Comment: - BP stable on metoprolol (3) MILLY (acute kidney injury) Code(s): N17.9 - ACUTE KIDNEY FAILURE, UNSPECIFIED SNOMED Code(s): 03040067 Comment: - Resolving with IVF (4) Cognitive deficits Code(s): R41.89 - OTH SYMPTOMS AND SIGNS W COGNITIVE FUNCTIONS AND AWARENESS SNOMED Code(s): 525344463 Comment: - Supportive care, is HC proxy (5) Lactic acidosis Code(s): E87.2 - ACIDOSIS SNOMED Code(s): 67938326 Comment: - LA initially elevated - Likely 2/2 Vtach, does not appear septic/toxic - Resolved Status and Disposition: Continue NPO for cardiac cath today. Remain in ICU, Status: guarded
[2018-04-19] MEDS ORDERED: Midazolam* 1 MG/ML 10 ML VIAL (10 MG) ONE (12:29)
[2018-04-19] MEDS ORDERED: fentaNYL* 50 MCG/ML 2 ML VIAL (100 MCG VIAL) ONE (12:29)
[2018-04-19] MEDS ORDERED: Heparin(*) 1000 UNIT/ML 10 ML VIAL CATH LAB IV ONE (12:29)
[2018-04-19] MEDS ORDERED: Heparin 2 UNITS/ML IVPREMIX* 2,000 ML IV ONE (12:30)
[2018-04-19] MEDS ORDERED: VERAPAMIL 2.5 MG/ML 2 ML VIAL ** 5 mg/2 ml ONE (12:30)
[2018-04-19] MEDS ORDERED: nitroGLYCERIN DRIP* 25,000 MCG/250 ML BTL ONE (12:30)
[2018-04-19] MEDS ORDERED: Iodixanol* (CONTRAST) 320 MG/ML 100 ML SDV ONE (12:30)
[2018-04-19] MEDS ORDERED: Lidocaine 1% INJ* 10 MG/ML 30 ML SDV ONE (12:33)
--- NOTE | 2018-04-19 13:17 | CONS ---
CC: Dr. Lundberg; Dr. Murrieta; Hospitalist Service CARDIOLOGY CONSULT: DATE OF CONSULT: 04/19/18 HISTORY OF PRESENT ILLNESS: I was asked by the hospitalist service to do Cardiology consult on this 72-year-old male patient, who presented to the emergency room yesterday from home. His drove hi m with symptoms of chest pressure, flushing, palpitations, tachycardia, and dizziness. The patient w as found to be in rapid heart rate of 185 beats per minute, wide complex, consistent with ventricular tachycardia, although he had a baseline rhythm of complete left bundle branch block. Before I attem pted cardioversion, he did receive bolus of amiodarone that broke him actually to his baseline normal sinus rhythm with complete right bundle branch block. An echocardiogram was done today, showed the patient to have an EF of 45% to 50% with resting baseline wall motion abnormality of the inferior and inferior lateral wall hypokinesis. Cardiology consult was further requested for further management. The patient currently is symptom free. He is in sinus rhythm. He gives visit that is fourth or thi rd time coming in a month to the emergency room with the same symptoms, but never caught arrhythmia. His troponins yesterday were 0.02, 0.03, and 0.03. He had no nausea, no vomiting, no syncope, no he matochezia, no skin rash, no abdominal pain, no swelling of the lower extremities, no orthopnea. He gives no history of myocardial infarction. He gives no history of congestive heart failure. He give s no history of diabetes mellitus. His cholesterol status is unknown. He does have history of syste felicia arterial hypertension and he was started as an outpatient on lisinopril. He gives no history of smoking. He does drink alcohol mildly to moderately. He gives no fever, no chills, no pneumonia, no hematochezia. No syncope. No history of coronary artery disease in the past. His review of all ot her systems essentially is negative. PAST MEDICAL HISTORY: Include history of systemic arterial hypertension and history of early undiagn osed dementia. PAST SURGICAL HISTORY: Essentially unremarkable. MEDICATIONS: Outpatient medication includes lisinopril 20 mg daily. Inpatient, he was started on amiodarone drip as per protocol. ALLERGIES: There are some concerns for allergy to SULFA giving rash. FAMILY HISTORY: He has a brother, who had NC before age 60 and stented. His grandfather of NC at the early age of 53 according to the patient. SOCIAL HISTORY: No history of tobacco. He drinks alcohol, mild to moderate. No history of illicit drug use. 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 He lives with his . REVIEW OF SYSTEMS: His review of all other systems is essentially negative. PHYSICAL EXAM: He is awake, alert, and oriented. He is not in acute distress. His vitals revealed h is blood pressure to be 126/71, he is in sinus rhythm with heart rate of 52, he is afebrile. Head an d Neck Exam: Normocephalic and atraumatic head. Ears, Nose, and Throat: Essentially benign. Neck: Supple. JVP is not elevated. No carotid bruits. No masses in the neck are appreciated. Chest: C lear to auscultation. No rales, no wheeze, no added sounds are appreciated. Heart: Normal, regular S1, S2. No added sounds. No gallops, no rubs. Abdomen: Benign. Positive bowel sounds. Extremit ies: No edema, no cyanosis, and no clubbing. Skin exam is normal. Psych: Normal affect and mood. MECHANIC ASSISTANT: No focal deficits are appreciated. DIAGNOSTIC STUDIES/LAB DATA: His EKG showed him to be in normal sinus rhythm with complete right bun dle branch block; that is his baseline EKG. His labs showed the following: White blood cells 6.1, hemoglobin 15.4, hematocrit 44, platelets 192. Sodium 138, potassium of 4.3, chloride 105, total CO2 is 26, BUN 24, and creatinine initially 1.45, now 1.35. Troponins 0.02, 0.03, 0.03. TSH 9.01, T4 of 5.41. Total CK 243. INR 0.92, PTT 28.8. His chest x-ray was reported to be no active cardiopulmonary disease. IMPRESSION: The patient is a 72-year-old male patient with: 1. Recurrent presentation to the emergency room with complex symptoms of chest pressure, flushing, d izziness, palpitations, tachycardia, and yesterday's visit documented him to have wide complex tachyc ardia, heart rate 185 beats per minute consistent with ventricular tachycardia and broke after boluse d with amiodarone treatment. 2. Cardiomyopathy with ejection fraction 45% to 50% with wall motion abnormality, inferior basal, in ferior lateral wall concerning for coronary artery disease. 3. Systemic arterial hypertension. 4. Complete right bundle branch block. 5. Mildly elevated TSH. 6. Family history of coronary artery disease. 7. Empk-ky-znmejqnh alcohol drinking. PLAN: A lengthy discussion with the patient, his about his medical condition. Based on his vent ricular tachycardia symptomatic and his wall motion abnormality with his resting baseline echo and mi ld cardiomyopathy, this patient is a candidate for left cardiac catheterization to evaluate his coron fatoumata anatomy as ischemia responsible for V-tach and for his wall motion abnormality. Benefits and ris ks discussed with the patient, he is willing to proceed. This was discussed with Dr. Quinones via phon e today as well, who is in agreement for the patient that he needs a left cardiac catheterization to evaluate his coronary anatomy. Meanwhile, it is important to keep his potassium more than 4, magnesi um more than 2, continue beta bernardino treatment as we already did. Regarding his TSH, I will defer t o the hospitalist to further evaluate this. He needs to probably cut down on his alcohol drinking in the future. Any further recommendations would be pending his cardiac catheterization evaluation. I answered all their concerns and questions up to their satisfaction. TIME SPENT: More than half of at least 60- to 65-plus minute was in the face-to- face education, cou nseling mode, evaluating the above, and making further recommendations. [id number]/[facility] #: [id number]
[2018-04-19] MEDS ORDERED: NS 0.9% 1000 ML* 1,000 ML IV SCH (13:45)
[2018-04-19 19:14] VITALS: BP 137/77
--- NOTE | 2018-04-19 22:33 | CATH ---
CATH REPORT: ADDENDUM: CORONARY ANGIOGRAPHY: RCA. The RCA is large, dominant, with minor luminal irregularity, supplies a relatively small PDA, followed by 2 small posterolaterals. The RCA has no significant stenosis. Left main. The left main is normal in size and length, has no stenosis. LAD. The LAD is moderate, extends to the apex, supplies 2 moderate diagonals, the LAD has no stenosis. Circumflex. The circumflex is large, not dominant, supplies a large marginal followed by 2 smaller posterolaterals. The circumflex has no stenosis. LV gram was not performed due to renal insufficiency. CONCLUSION: 1. No obstructive coronary artery disease. 2. Normal left-sided hemodynamics. 3. Successful right radial artery access. 4. LV gram not performed due to renal insufficiency. [id number]/[facility] #: [id number] PLACIDO
--- NOTE | 2018-04-19 22:58 | CATH ---
CONTINUATION ADDENDUM NOW INCLUDED ON THIS REPORT CC: Dr. Lundberg; Dr. Murrieta * CATH REPORT: DATE OF PROCEDURE: 04/19/18 PRIMARY CARE PROVIDER: Dr. Lundberg. THREAD MACHINE OPERATOR: Dr. Murrieta. PROCEDURE: Right radial artery access, bilateral selective coronary cineangiography, left heart catheterization. LV gram not done due to renal insufficiency. HISTORY: A 72-year-old male with sustained monomorphic VT converted to sinus rhythm with IV amiodarone, referred for coronary angiography. Echocardiogram shows mild LV systolic dysfunction with EF of 45%. There is a strong family history of premature coronary artery disease. PROCEDURE ACCESS: Right radial artery sheath 6F slender. MEDICATIONS: 1. Subcu lidocaine. 2. IV Versed. 3. IV fentanyl. 4. Heparin 3000 units. 5. Verapamil 3 mg. 6. Nitroglycerin 300 mcg IA. DIAGNOSTIC CATHETER: 5F TIG4, which was also used for left heart pressures. HEMODYNAMICS: Initial AO 87/47. LV 104/10, no aortic valve gradient on pullback. CORONARY ANGIOGRAPHY: RCA. The RCA is large, dominant, with minor luminal irregularity, supplies a relatively small PDA, followed by 2 small posterolaterals. The RCA has no significant stenosis. Left main. The left main is normal in size and length, has no stenosis. LAD. The LAD is moderate, extends to the apex, supplies 2 moderate diagonals, the LAD has no stenosis. Circumflex. The circumflex is large, not dominant, supplies a large marginal followed by 2 smaller posterolaterals. The circumflex has no stenosis. LV gram was not performed due to renal insufficiency. CONCLUSION: 1. No obstructive coronary artery disease. 2. Normal left-sided hemodynamics. 3. Successful right radial artery access. 4. LV gram not performed due to renal insufficiency. [id number]/CPS #: [id number] - [id number]/CPS #: [id number] [facility]
--- NOTE | 2018-04-19 23:24 | TRS ---
CC: Dr. Lundberg; Dr. Murrieta; Dr. Supriya Quinones; Dr. Juliane Alfaro * TRANSFER SUMMARY: DATE OF ADMISSION: 04/18/18 DATE OF TRANSFER: 04/19/18 ATTENDING PROVIDER: Dr. Sal Ruiz * (DICTATED BY TIFFANY GONZALES NP) HOSPITAL COURSE: This is a 72-year-old male patient, who had reports of flushing, syncopal-like episodes, chest pressure, and weakness when he was at home. The patient states this has happened 3 times over the past month, each time he came to the emergency department and no findings were noted, he was discharged to home. However, at this time, he came in with the chest pressure, flushing, palpitations, some tachycardia, and dizziness, he was found to be in ventricular tachycardia, which was sustained with a rate of approximately 185 beats per minute. It was quite wide complex in nature. He did have a complete left bundle-branch block in addition to his ventricular tachycardia. However, when they were attempting cardioversion in the emergency department, he received a bolus of amiodarone and spontaneously converted. The patient was continued on amiodarone drip and was admitted to the ICU. Echocardiogram was performed in the morning of 04/19/18, which showed the patient to have an ejection fraction of about 45%, also with a wall motion abnormality of the inferior and inferolateral wall with some hypokinesis. So, essentially because he had this cardiomyopathy, it was thought that the patient may have a lesion in his coronaries. Dr. Supriya Quinones from [facility] was requested to evaluate the patient for left heart cath. He underwent a radial cath today and was found to have a clean catheterization. At this point, I spoke with Dr. Murrieta again regarding plan of care. He recommends that the patient go for EP studies given that he does not have a stentable lesion and we do not have an etiology for his V-tach. Of significant note, the patient did not have positive troponins. They were 0.02, 0.03, and 0.03. He had no further episodes of ventricular tachycardia or the symptoms that were accompanying that rhythm. He has essentially remained stable, however, he is in sinus bradycardia since converting and he did have some hypertension in the past, however, blood pressure has been stable during his stay here in the hospital. Dr. Murrieat reached out to Dr. Martinez at [place]. The patient is a patient of Dr. Francis Lundberg for primary care. So, Cardiology decided that it should be important for the patient to receive transition of care to the [facility] , so that Dr. Lundberg can follow up with local micro computer specialist at [place]. TRANSFER DIAGNOSES: 1. Sustained ventricular tachycardia. 2. History of hypertension. 3. Cardiomyopathy, etiology unclear. 4. Acute kidney injury, resolved with fluid administration. 5. Mild cognitive deficit. The patient appears to have some mild dementia. 6. Lactic acidosis, which was likely secondary to his ventricular tachycardia, and the patient is not septic. DISCHARGE MEDICATIONS: Include: 1. Tylenol 650 mg q.6 hours as needed. 2. Melatonin 3 mg at bedtime as needed. 3. Metoprolol tartrate 25 mg p.o. q.8 hours scheduled, last dose held due to bradycardia. 4. Prilosec 20 mg daily. 5. Zofran 4 mg q.6 hours as needed. 6. Amiodarone has currently been held. 7. Lisinopril from home is also currently being held due to his renal dysfunction. DISPOSITION: The patient has been accepted by Dr. Martinez. We are awaiting bed assignment from [facility]. The patient will be discharged via ALS to [facility] when a bed is assigned. This plan of care has been coordinated with Dr. Murrieta from Cardiology, who reached out to Dr. Martinez in terms of accepting this patient's case. The patient was discharged in stable condition. All questions were answered. The patient's who is at the bedside, is his healthcare proxy and stated her understanding of the reason for transfer and current plan of care. TIFFANY GONZALES, [place] [id number]/[facility] #: [id number] [facility]
== END 2018-04-19 19:16 | disposition short-term general hospital (02) | DRG 287 ==
LOC: ED 20:51 → ICU 22:41
PROVIDERS: ADMIT Hospitalist; ATTEND Hospitalist
PROC: B2111ZZ Fluoroscopy of Multiple Coronary Arteries using Low Osmolar Contrast (ICD-10-PCS; 2018-04-19)
PROC: 4A023N7 Measurement of Cardiac Sampling and Pressure, Left Heart, Percutaneous Approach (ICD-10-PCS; principal; 2018-04-19 12:45)
DX: I47.2 Ventricular tachycardia (principal); N17.9 Acute kidney failure, unspecified; I42.9 Cardiomyopathy, unspecified; E87.2 Acidosis; I10 Essential (primary) hypertension; F03.90 Unspecified dementia, unspecified severity, without behavioral disturbance, psychotic disturbance, mood disturbance, and anxiety; R94.6 Abnormal results of thyroid function studies; R55 Syncope and collapse; I45.2 Bifascicular block; R00.1 Bradycardia, unspecified; Z88.2 Allergy status to sulfonamides; Z82.49 Family history of ischemic heart disease and other diseases of the circulatory system; Z72.89 Other problems related to lifestyle
CPT/HCPCS: 36415; 71045; 80048; 80053; 82550; 82553; 83605; 83735; 83880; 84436; 84443; 84484; 85025; 85610; 85730; 86376; 86850; 86900; 86901; 87641; 93005; 93306; 93458; 99156; 99284; A9270-GY; J0282; J1644; J2250; J3010

== ENCOUNTER 2018-06-21 13:17 | Emergency (ER) | payer MEDICARE, BC ==
[2018-06-21 13:24] VITALS: BP 156/86
--- NOTE | 2018-06-21 13:36 | UC ---
Ear Complaint HPI - HPI Summary HPI Summary: 73 yo male presents with left ear pain since this morning. He tells me that he wears hearing aids daily. Woke up this morning with left ear pain. [place] fine last night and denies fever, chills, drainage, injury, or decreased hearing from baseline. - History of Current Complaint Chief Complaint: UCEar Stated Complaint: EAR PAIN Time Seen by Provider: 06/21/18 13:36 Hx Obtained From: Patient Onset/Duration: Sudden Onset Severity Initially: Mild Severity Currently: Mild Pain Intensity: 4 Pain Scale Used: 0-10 Numeric - Allergies/Home Medications Allergies/Adverse Reactions: Allergies Allergy/AdvReac Type Severity Reaction Status Date / Time Sulfa (Sulfonamide Allergy Rash Verified 06/21/18 13:24 Antibiotics) Home Medications: Home Medications Donepezil TAB* [Aricept 5 MG TAB*] 5 mg PO DAILY 06/21/18 [History Confirmed 01/31] PMH/Surg Hx/FS Hx/Imm Hx - Additional Past Medical History Additional PMH: Dementia Cardiovascular History: Hypertension Other History Of: Negative For: Anticoagulant Therapy - Surgical History Surgical History: None Surgery Procedure, Year, and Place: As per , no prior surgeries noted. - Family History Known Family History: Positive: Cardiac Disease, Other Family History: Heart attack brother at age 53 - Social History Occupation: Retired Lives: With Family Alcohol Use: Daily Alcohol Amount: glass of wine Substance Use Type: None Smoking Status (MU): Never Smoked Tobacco - Immunization History Most Recent Influenza Vaccination: 04/2017 Most Recent Pneumonia Vaccination: none Review of Systems Constitutional: Negative Skin: Negative Eyes: Negative ENT: Ear Ache Respiratory: Negative Cardiovascular: Negative Gastrointestinal: Negative Neurovascular: Negative Neurological: Negative Psychological: Negative All Other Systems Reviewed And Are Negative: Yes Physical Exam - Summary Physical Exam Summary: GENERAL: NAD. WDWN. No pain distress. SKIN: No rashes, sores, lesions, or open wounds. HEENT: Head: AT/NC Eyes: EOM intact. Conjunctiva clear without inflammation or discharge. Ears: Hearing grossly normal. LEFT TM without erythema or bulging. Mild white purulent drainage at base of TM. No canal edema. NECK: Supple. Nontender. No lymphadenopathy. CHEST: No accessory muscle use. Breathing comfortably and in no distress. CV: Pulses intact. NEURO: Alert. PSYCH: Age appropriate behavior. Triage Information Reviewed: Yes Vital Signs: Initial Vital Signs Temp 97.7 F 06/21/18 13:21 Pulse 65 06/21/18 13:21 Resp 18 06/21/18 13:21 BP 156/86 06/21/18 13:21 Pulse Ox 97 06/21/18 13:21 Vital Signs Reviewed: Yes Ear Complaint Course/Dx - Course Course Of Treatment: Left otitis externa - Differential Dx/Diagnosis Provider Diagnoses: left otitis externa Discharge - Sign-Out/Discharge Documenting (check all that apply): Patient Departure All imaging exams completed and their final reports reviewed: No Studies - Discharge Plan Condition: Stable Disposition: HOME Prescriptions: Ofloxacin 0.3% (Ear Drop)* [Floxin 0.3% OTIC.YASMIN (Ear Drop)] 5 drop LEFT EAR BID #1 btl Patient Education Materials: Otitis Externa (ED) Referrals: Francis Lundberg MD [Primary Care Provider] - Additional Instructions: If you develop a fever, shortness of breath, chest pain, new or worsening symptoms - please call your PCP or go to the ED. Your blood pressure was high at todays visit. Please see your primary provider within 4 weeks for recheck and re-evaluation. - Billing Disposition and Condition Condition: STABLE Disposition: Home
== END 2018-06-21 13:44 | disposition home or self-care (01) ==
LOC: UCEAST 13:17
DX: H60.92 Unspecified otitis externa, left ear (principal); I10 Essential (primary) hypertension; Z88.2 Allergy status to sulfonamides
CPT/HCPCS: 99212; G0463

== ENCOUNTER 2018-07-02 07:23 | Emergency (ER) | payer MEDICARE, BC ==
--- OUTSIDE RECORDS SUMMARY | 2018-07-02 07:29 | XMS REPORT | Continuity of Care Document ---
:1945 External Reference #:[id number] Author Name Balbir Vasquez MD Address [address] [place] [address] Care Team Providers Name Role Phone Balbir Vasquez MD Care Team Information [employer] Unavailable Payers Type Date Identification Numbers Payment Provider Subscriber Policy Number: [id number] [employer] [employer] Shaka Brewster PayID: [id number] [address] [place] [address] Advance Directives Description No Information Available Problems Date Description Provider Status Onset: 06/30/2018 Essential hypertension Balbir Vasquez MD Active Onset: 06/30/2018 Diffuse otitis externa Balbir Vasquez MD Active Family History Date Family Member(s) Problem(s) Comments General Heart Attack General Heart Disease Social History Type Date Description Comments Sex Unknown Occupation Retired Tobacco Use Start: Unknown Never Smoked Cigarettes Tobacco Use Start: Unknown Never Smoked Cigars Tobacco Use Start: Unknown Never Smoked A Pipe Smokeless Tobacco Never Used Smokeless Tobacco ETOH Use PT Drinks [place] Daily Allergies, Adverse Reactions, Alerts Description No Known Drug Allergies Medications Medication Date Status Form Strength Qnty SIG Indications Ordering Provider Lisinopril Active Tablets 20mg 1 tab [place] MD, 00 daily Francis Metoprolol Active Tablets ER 100mg Take One Unknown Succinate ER 00 24HR Tablet By Mouth Every Day Donepezil HCL Active Tablets 5mg 1 tab [place] MD, 00 daily Francis [facility] Vitamin Active Tablets 1000mcg 1 tab Unknown B12 00 daily Immunizations Description No Information Available Vital Signs Date Vital Result Comment 06/30/2018 8:48am Weight 176.00 lb Weight 79.834 kg Height 70 inches 5'10" Height in cm's 177.8 cm BMI (Body Mass Index) 25.3 kg/m2 Results Description No Information Available Procedures Description No Information Available Encounters Type Date Location Provider Dx Diagnosis Office Visit 06/30/2018 [place] Balbir Vasquez, H60.312 Diffuse otitis 8:45a 08/16/07 MD externa, left ear Plan of Treatment Future Appointment(s):07/14/2018 1:45 pm - Balbir Vasquez MD at [place] - Balbir Vasquez MDH60.312 Diffuse otitis externa, left earComments:Findings of otitis externa left ear. With a small superficial ulcer I suspect this is secondary to use of Q-tip. I instilled some Chloromycetin boric acid powder in the left ear recheck back in 2 weeks.
[2018-07-02 07:43] VITALS: BP 138/68
--- NOTE | 2018-07-02 07:59 | UC ---
Respiratory Complaint HPI - HPI Summary HPI Summary: Onset on awakening of a pain in the chest with inspiration, with bilateral radiation to the ears. Cannot describe the quality of this, and has no associated shortness of breath. No nausea, vomiting or diaphoresis. He is not concerned about the severity of the pain, but comes in because of the unusual radiation to the ears. Does not have ear pain or fullness. EKG does not show acute changes. No hx of heartburn. Although he states that it was present soon after awakening , his thought it started after breakfast. No cough associates, no recent illness or fever. Has had a pacemaker since April, when he presented to the ER in [place]. Cardiac cath at that time showed no evidence of CAD. Notably he did lift the access ladder to their attack yesterday, and observed that it was a struggle for him to do this lifting. - History of Current Complaint Chief Complaint: UCChestPain Stated Complaint: PAIN WITH BREATHING Time Seen by Provider: 07/02/18 07:27 Hx Obtained From: Patient, Family/Car Storer - here with his Onset/Duration: Sudden Onset, Lasting Hours - 2 Timing: Constant Severity Initially: Mild Severity Currently: Mild - seems to be decreased relative to onset. Pain Intensity: 4 Aggravating Factors: Deep Breaths Alleviating Factors: Nothing Associated Signs And Symptoms: Positive: Negative - Risk Factors Pulmonary Embolism Risk Factors: Negative Cardiac Risk Factors: Hypertension - Allergies/Home Medications Allergies/Adverse Reactions: Allergies Allergy/AdvReac Type Severity Reaction Status Date / Time Penicillins Allergy Rash Verified 07/02/18 07:35 Sulfa (Sulfonamide Allergy Rash Verified 07/02/18 07:35 Antibiotics) Home Medications: Home Medications Cyanocobalamin TAB* [Vitamin B12 TAB*] 1,000 mcg PO DAILY 07/02/18 [History Confirmed 07/02/18] PMH/Surg Hx/FS Hx/Imm Hx - Additional Past Medical History Additional PMH: bilateral hearing loss Previously Healthy: Yes Cardiovascular History: Hypertension Neurological History: Dementia - mild Other History Of: Negative For: Anticoagulant Therapy - Surgical History Surgical History: None Surgery Procedure, Year, and Place: pacemaker placement April 2018 - Family History Known Family History: Positive: Cardiac Disease, Other Family History: Heart attack brother at age 53 - Social History Occupation: Retired Lives: With Family Alcohol Use: Daily Alcohol Amount: glass of wine Substance Use Type: None Smoking Status (MU): Never Smoked Tobacco - Immunization History Most Recent Influenza Vaccination: 04/2017 Most Recent Pneumonia Vaccination: none Review of Systems All Other Systems Reviewed And Are Negative: Yes Constitutional: Positive: Negative Skin: Positive: Negative Eyes: Positive: Negative ENT: Positive: Negative Respiratory: Positive: Other - chest pain with inspiration. Cardiovascular: Positive: Negative Gastrointestinal: Positive: Negative Genitourinary: Positive: Negative Motor: Positive: Negative Neurovascular: Positive: Negative Musculoskeletal: Positive: Negative Neurological: Positive: Negative Psychological: Positive: Negative Is Patient Immunocompromised?: No Physical Exam Triage Information Reviewed: Yes Completion Of Physical Exam Limited Due To: Dementia - vague history, and neither he nor his can provide detailed information. Appearance: Well-Appearing, No Pain Distress Vital Signs: Initial Vital Signs Temp 98.5 F 07/02/18 07:32 Pulse 68 07/02/18 07:32 Resp 18 07/02/18 07:32 BP 138/68 07/02/18 07:32 Pulse Ox 94 07/02/18 07:32 Eyes: Positive: Conjunctiva Clear ENT: Positive: Pharynx normal Neck: Positive: Supple, Nontender, No Lymphadenopathy Respiratory: Positive: Lungs clear, Normal breath sounds Cardiovascular: Positive: RRR, No Murmur Abdomen Description: Positive: Nontender, No Organomegaly Musculoskeletal Exam: Normal Neurological: Positive: Alert Psychological Exam: Normal Skin Exam: Normal UC Diagnostic Evaluation - Laboratory O2 Sat by Pulse Oximetry: 94 Diagnostic Studies Comment: Chest xray per MH without acute disease, pacemaker in place, no evidence of pneumothorax or infiltrate. - Radiology Radiology Interpretation Completed By: ED Physician, Radiologist - Dr. Enriquez. No acute process. Respiratory Course/Dx - Course Course Of Treatment: observation, acetaminophen for pain, might try an antacid. - Differential Dx/Diagnosis Differential Diagnosis/HQI/PQRI: Aspiration, Asthma, Lower Resp Infection, Pneumothorax, Other - arrhythmia Provider Diagnoses: pain with inspiration NYD, no worrisome findings on exam or studies. Discharge - Sign-Out/Discharge Documenting (check all that apply): Patient Departure All imaging exams completed and their final reports reviewed: Yes - Discharge Plan Condition: Stable Disposition: HOME Patient Education Materials: Chest Wall Pain (ED) Referrals: Francis Lundberg MD [Primary Care Provider] - Additional Instructions: It is possible that this is chest wall pain from yesterday's lifting. You might use acetaminophen 625mg every 6 hours for the discomfort. As discussed , you might also try an antacid such as Tums to see if it might be heartburn. If pain worsens or persists, please go to the emergency room for further assessment. The radiologist confirmed that there is no acute process in the lungs based on chest xray. - Billing Disposition and Condition Condition: STABLE Disposition: Home
== END 2018-07-02 08:40 | disposition home or self-care (01) ==
LOC: UCEAST 07:23
DX: R07.9 Chest pain, unspecified (principal); Z95.0 Presence of cardiac pacemaker; Z88.1 Allergy status to other antibiotic agents; Z88.0 Allergy status to penicillin
CPT/HCPCS: 71046; 93005; 99211; G0463

== ENCOUNTER 2018-07-12 05:57 | Inpatient (IN) | payer MEDICARE, BC ==
--- NOTE | 2018-07-12 06:04 | ED ---
HPI Chest Pain - HPI Summary HPI Summary: A 73 y/o M brought in by ambulance presents to ED with c/o heart palpitations and mid-sternal chest pain onset this AM this date. Per EMS: The pt had CP last night at 2300, he took an aspirin and went to bed. He awoke with CP and palpitations. At arrival, he describes the pain as a mild chest tightness. Pt received aspirin en route. - History of Current Complaint Hx Obtained From: Patient, EMS Onset/Duration: Still Present Timing: Constant Current Severity: Moderate Pain Intensity: 5 Pain Scale Used: 0-10 Numeric Chest Pain Location: Mid Sternal Character: Tightness Aggravating Factor(s): Deep Breaths Alleviating Factor(s): OTC Meds - Additional Pertinent History Primary Care Physician: GUDELIA - Allergy/Home Medications Allergies/Adverse Reactions: Allergies Allergy/AdvReac Type Severity Reaction Status Date / Time Penicillins Allergy Rash Verified 07/03/18 10:33 Sulfa (Sulfonamide Allergy Rash Verified 07/03/18 10:33 Antibiotics) Home Medications: Home Medications Lisinopril TAB* [Prinivil TAB*] 40 mg PO DAILY 07/12/18 [History Confirmed 07/12] Metoprolol Succinate XL TAB* [Toprol XL TAB*] 100 mg PO DAILY 07/12/18 [History Confirmed 07/12/18] PMH/Surg Hx/FS Hx/Imm Hx Previously Healthy: No Endocrine/Hematology History: Denies: Hx Anticoagulant Therapy, Hx Diabetes Cardiovascular History: Reports: Hx Pacemaker/ICD - 9/18 due to arrhythmia this year, Other Cardiovascular Problems/Disorders - [place] Denies: Hx Cardiac Arrest, Hx Coronary Artery Disease, Hx Hypercholesterolemia, Hx Hypertension Respiratory History: Denies: Hx Chronic Obstructive Pulmonary Disease (COPD), Other Respiratory Problems/Disorders History: Reports: Other Problems/Disorders - MILLY Denies: Hx Dialysis Sensory History: Reports: Hx Contacts or Glasses, Hx Hearing Aid, Hx Hearing Problem Opthamlomology History: Reports: Hx Contacts or Glasses Neurological History: Reports: Hx Dementia Denies: Hx CVA, Hx Transient Ischemic Attacks (TIA) - Surgical History Surgery Procedure, Year, and Place: pacemaker placement April 2018 Infectious Disease History: Denies: Hx of Known/Suspected MRSA - Family History Known Family History: Positive: Cardiac Disease, Other Family History: Heart attack brother at age 53 - Social History Occupation: Retired Lives: With Family Alcohol Use: Daily Alcohol Amount: glass of wine Hx Substance Use: No Substance Use Type: Reports: None Hx Tobacco Use: No Smoking Status (MU): Never Smoked Tobacco Review of Systems Negative: Fever Positive: Palpitations, Chest Pain All Other Systems Reviewed And Are Negative: Yes Physical Exam - Summary Physical Exam Summary: Appearance: Well-appearing, Well-nourished, lying in bed comfortably Skin: Warm, dry, no obvious rash Eyes: sclera anicteric, no conjunctival pallor ENT: mucous membranes moist, pharynx appears normal Neck: Supple, nontender Respiratory: Clear to auscultation, no signs of respiratory distress Cardiovascular: Normal S1, S2. No murmurs. Normal distal pulses in tibial and radial bilaterally. Abdomen: Soft, nontender, normal active bowel sounds present Musculoskeletal: Normal, Strength/ROM Intact Neurological: A&Ox3, awake and alert, mentation is normal, speech is fluent and appropriate Psychiatric: affect is normal, does not appear anxious or depressed Triage Information Reviewed: Yes Vital Signs Reviewed: Yes Diagnostics - Laboratory Result Diagrams: 07/12/18 06:17 07/12/18 06:17 Lab Statement: Any lab studies that have been ordered have been reviewed, and results considered in the medical decision making process. - Radiology CXR Radiology Interpretation Completed By: ED Physician Summary of Radiographic Findings: Worsening pleural effusion on the Left. - EKG 0600 Summary of EKG Findings: EKG shows RBBB and NSR without any significant ST segment abnormality. The machine reading indicates lateral infarct, apparently due to its interpretation of leads 1 and aVL, however on my read of these leads they are quite similar to a prior tracing from 9 days ago. 0630 EKG Comparison: No Significant Change - from previous at 0600. Re-Evaluation - Re-Evaluation 1 Re-Evaluation Time: 06:48 Change: Unchanged Comment: Discussing possibility of PE with pt and need for CTA. First Eval Re-Evaluation Time: 10:25 Comment: Patient reports chest pain at left side, sits between 88-92% o2 sat on RA. reports cough over the past several days. Chest pain exacerbated at 2300, reports SOB. No difficulty lying flat. Was given ASA ASSISTANT MANAGER TRAINEE by . Deep breath aggravates pain. Patient had a recent heart cath apr 22 which was reported to have been good. He also notes that he choked on coffee a couple of days ago. Patient is agreeable with admission. Chest Pain Course/Dx - Course Course Of Treatment: This is a 73-year-old man who presents in no acute distress with only minimal chest tightness with inspiration. He has no other associated symptoms to suggest acute coronary syndrome. His EKG shows right bundle branch block, normal sinus rhythm, without any significant ST segment abnormality. The machine reading indicates lateral infarct, apparently due to its interpretation of leads 1 and aVL, however on my read of these leads they are quite similar to a prior tracing from 9 days ago. Further, the patient had a cardiac catheterization 2 months ago which showed clean coronaries. He was recently admitted with what sounds to be fairly similar chest discomfort, and ruled out for ND based on normal troponins. The patient has received aspirin en route. He appears quite comfortable now and does not really have any persistent pain or tightness. I have ordered a troponin testing the patient is not a good historian due to his underlying cognitive impairment, EMS tells me that his related that he complained of some discomfort last night, so it expect a troponin elevation on his first draw if this were indeed an acute coronary syndrome. CXR shows worsening pleural effusion on the Left, which corresponds to the location of his pain. Pt will be signed-out to Dr. Osvaldo Saba at shift change pending lab and CTA results. - Diagnoses Provider Diagnoses: Pleural effusion, Aspiration pneumonia Discharge - Sign-Out/Discharge Documenting (check all that apply): Sign-Out Patient Signing out patient TO: Osvaldo Saba - pending lab/CTA results Receiving patient FROM: Stephen Horan - Discharge Plan Condition: Good Disposition: ADMITTED TO [facility] - Billing Disposition and Condition Condition: GOOD Disposition: Admitted to [facility] - Attestation Statements Document Initiated by Scribe: Yes Documenting Scribe: Bobby Bautista Provider For Whom Scribe is Documenting (Include Credential): Dr. Stephen Horan MD Scribe Attestation: Bobby Betts, scribed for Dr. Stephen Horan MD on 07/13/18 at 0201. Scribe Documentation Reviewed: Yes Provider Attestation: The documentation as recorded by the scribe, Bobby Bautista accurately reflects the service I personally performed and the decisions made by me, Dr. Stephen Horan MD Status of Shefali Document: Viewed
[2018-07-12] MEDS ORDERED: Nitroglycerin TAB 0.4 MG* 0.4 MG TAB SL ONE (06:06)
[2018-07-12 06:28] LABS: ABS Basophils 0 10^3/ul (0-0.2); ABS Eosinophils 0 10^3/ul (0-0.6); ABS Lymphocytes 0.7 10^3/ul (1.0-4.8); ABS Monocytes 0.7 10^3/ul (0-0.8); ABS Neutrophils 7.6 10^3/ul (1.5-7.7); ABS Nucleated RBC 0 10^3/ul; Eosinophil % 0.3 %; Hematocrit 42 % (42-52); Hemoglobin 14.2 g/dl (14.0-18.0); Lymphocyte % 7.4 %; Mean Corpuscular HGB Conc 34 g/dl (31-36); Mean Corpuscular Hemoglobin 34 pg (27-31); Mean Corpuscular Volume 100 fL (80-94); Mean Platelet Volume 6.8 fL (7.4-10.4); Nucleated Red Blood Cells % 0.1; Platelet Count 307 10^3/ul (150-450); Red Blood Count 4.15 10^6/ul (4.00-5.40); Red Cell Distribution Width 14 % (10.5-15); White Blood Count 9.1 10^3/ul (3.5-10.8)
[2018-07-12 06:48] LABS: EGFR Non-African American 61.4 (>60)
[2018-07-12] MEDS ORDERED: Iodixanol* (CONTRAST) 320 MG/ML 100 ML SDV IV ONE (07:06)
--- NOTE | 2018-07-12 07:11 | ED ---
Progress - Progress Note Progress Note: Patient is received as a sign out from Dr. Horan to Dr. Saba at 0700 pending results of CTA chest. ' CTA CHEST/THORAX IMPRESSION: 1. LIMITED STUDY, NO EVIDENCE FOR PULMONARY EMBOLISM. 2. MODERATE SIZE PERICARDIAL EFFUSION. 3. BILATERAL PLEURAL EFFUSIONS AND BILATERAL LOWER LOBE INFILTRATES SUGGESTIVE OF ATELECTASIS LESS LIKELY PNEUMONIA. THIS REPORT WAS REVIEWED BY ED PHYSICIAN. 1025 - Patient reports chest pain at left side, sits between 88-92% o2 sat on RA. reports cough over the past several days. Chest pain exacerbated at 2300, reports SOB. No difficulty lying flat. Was given ASA X2 CLINICAL DATA ABSTRACTOR by . Deep breath aggravates pain. Patient had a recent heart cath apr 22 which was reported to have been good. He also notes that he choked on coffee a couple of days ago. Admission was discussed with patient, he is agreeable. - EKG/XRAY/CT CT: see above Re-Evaluation - Re-Evaluation First Eval Re-Evaluation Time: 10:25 Comment: Patient reports chest pain at left side, sits between 88-92% o2 sat on RA. reports cough over the past several days. Chest pain exacerbated at 2300, reports SOB. No difficulty lying flat. Was given ASA CLINICAL DATA ABSTRACTOR by . Deep breath aggravates pain. Patient had a recent heart cath apr 22 which was reported to have been good. He also notes that he choked on coffee a couple of days ago. Patient is agreeable with admission. 1 Re-Evaluation Time: 06:48 Change: Unchanged Comment: Discussing possibility of PE with pt and need for CTA. Course/Dx - Course Course Of Treatment: Patient is received as a sign out from Dr. Horan to Dr. Saba at 0700 07/12/18 pending results of CTA chest. CTA CHEST/THORAX IMPRESSION: 1. LIMITED STUDY, NO EVIDENCE FOR PULMONARY EMBOLISM. 2. MODERATE SIZE PERICARDIAL EFFUSION. 3. BILATERAL PLEURAL EFFUSIONS AND BILATERAL LOWER LOBE INFILTRATES SUGGESTIVE OF. ATELECTASIS LESS LIKELY PNEUMONIA. 1025 - Patient reports chest pain at left side, sits between 88-92% o2 sat on RA. reports cough over the past several days. Chest pain exacerbated at 2300, reports SOB. No difficulty lying flat. Was given ASA CLINICAL DATA ABSTRACTOR by . Deep breath aggravates pain. Patient had a recent heart cath apr 22 which was reported to have been good. He also notes that he choked on coffee a couple of days ago. Admission was discussed with patient, he is agreeable. During ED course, patient received ceftriaxone and clindamycin. Patient's case was discussed with Dr. Rizzo at 1036, Dr. Rizzo accepts the patient for admission. - Diagnoses Provider Diagnoses: Pleural effusion, Aspiration pneumonia - Provider Notifications Discussed Care Of Patient With: Krysta Rizzo Time Discussed With Above Provider: 10:36 Instructed by Provider To: Other - Patient's case was discussed with Dr. Rizzo at 1036, Dr. Rizzo accepts the patient for admission. Discharge - Sign-Out/Discharge Documenting (check all that apply): Patient Departure - admit - Discharge Plan Condition: Good Disposition: ADMITTED TO [facility] Referrals: Francis Lundberg MD [Primary Care Provider] - - Attestation Statements Document Initiated by Scribe: Yes Documenting Scribe: DEBORA DUBOIS Provider For Whom Scribe is Documenting (Include Credential): KIRILL SABA MD Scribe Attestation: DEBORA Betts , scribed for KIRILL SABA MD on 07/12/18 at 1053. Status of Scribe Document: Ready
[2018-07-12] MEDS ORDERED: Azithromycin IV(*) 500 MG in NS 0.9% 250 ML* 250 ML IVPB ONE (10:22)
[2018-07-12] MEDS ORDERED: cefTRIAXone(*) 1 GM in NS 0.9% 50 ML* 50 ML IVPB ONE (10:22)
[2018-07-12] MEDS ORDERED: Clindamycin 900 MG IVPREMIX(* 900 MG/50 ML SDV IV ONE (10:33)
[2018-07-12] MEDS ORDERED: Acetaminophen TAB* 325 MG PO PRN (12:21)
[2018-07-12] MEDS ORDERED: cefTRIAXone(*) 1 GM in NS 0.9% 50 ML* 50 ML IVPB SCH (12:28)
[2018-07-12] MEDS: Metoprolol Succinate XL TAB* 100 MG PO SCH (14:31)
[2018-07-12] MEDS: Heparin VIAL(*) 5000 UNITS/ML VIAL (FIVE THOUSAND) SUBCUT SCH ×2 (14:32→21:11)
--- NOTE | 2018-07-12 16:23 | ECHO ---
Patient: LUCILLE IZAGUIRRE [facility] Rec#: [id number] : 1945 Date: 07/12/2018 Age: 73y Height: 177.8 cm / 70.0 in Weight: 74.84 kg / 164.9 lbs Sex: M BSA: 1.92 Room#: ED 12 Admit Date#: 07/12/2018 Type: Inpatient Referring: Krysta Rizzo MD Reading: Chase Fuller MD Production Underwriter: Lexy Freire,NATALICS,RDMS CC: Alirio Yañez Transthoracic Echocardiogram Indication: Pericardial Effusion BP: 121/66 HR: 91 Rhythm: NSR Findings History: Pacemaker, HTN, Vtach, pleural effusions. Technical Comments: The study quality is fair. Left Ventricle: The left ventricular chamber size is normal. Mild concentric left ventricular hypertrophy is observed. Global left ventricular wall motion and contractility are within normal limits. Left ventricular systolic function is at the lower limits of normal. The estimated ejection fraction is 50-55%. There is abnormal ventricular septal wall motion consistent with right ventricular pacemaker. There is no consistent Doppler evidence of clinically significant diastolic dysfunction. Left Atrium: The left atrial chamber size is normal. Right Ventricle: The right ventricle wall thickness is mildly increased. The right ventricular cavity size is normal. The right ventricular global systolic function is low normal. Right Atrium: The right atrial cavity size is normal. Aortic Valve: The aortic valve is trileaflet. The aortic valve leaflets are mildly thickened. There is no evidence of aortic regurgitation. There is no evidence of aortic stenosis. Mitral Valve: The mitral valve leaflets are mildly thickened. There is no evidence of mitral regurgitation. There is no evidence of mitral stenosis. Tricuspid Valve: The tricuspid valve leaflets are normal. There is trace tricuspid regurgitation. No pulmonary hypertension is noted. Pulmonic Valve: The pulmonic valve structure is not well visualized. There is no evidence of pulmonic regurgitation. Pericardium: A trivial pericardial effusion is visualized. Aorta: The aortic root appears normal. There is no dilatation of the aortic arch. Pulmonary Artery: The main pulmonary artery is not well visualized. Venous: The inferior vena cava appears normal in size. There is a greater than 50% respiratory change in the inferior vena cava dimension. Conclusions Global left ventricular wall motion and contractility are within normal limits. Left ventricular systolic function is at the lower limits of normal. The estimated ejection fraction is 50-55%. There is abnormal ventricular septal wall motion consistent with right ventricular pacemaker. The right ventricular global systolic function is low normal. There is no evidence of aortic stenosis. There is no evidence of mitral regurgitation. There is trace tricuspid regurgitation. No pulmonary hypertension is noted. A trivial pericardial effusion is visualized. Compared to study of 04/19/18, LV function and valves are the same. Trivial pericardial effusion and Pacer wires are new Measurements Name Value Normal Range RVIDd (AP) 2D 3 cm (0.9 - 2.6) RVDdMajor (2D) 4.1 cm (2.2 - 4.4) RAd ISD 4CH 4.7 cm (3.4 - 4.9) RA (A4C)W 3.2 cm (2.9 - 4.6) IVSd (2D) 1.2 cm (0.6 - 1) LVPWd (2D) 1.2 cm (0.6 - 1) LVIDd (2D) 3.7 cm (3.6 - 5.4) LVIDs (2D) 3 cm - LV FS (2D) 20 % (25 - 45) Aortic Annulus 2.2 cm (1.4 - 2.6) Ao root diameter (2D) 3.1 cm (2.1 - 3.5) Ascending Ao 3.2 cm (2.1 - 3.4) Aortic arch 3.2 cm (1.8 - 3.4) LA dimension (AP) 2D 3.7 cm (2.3 - 3.8) LAd ISD 4CH 4.8 cm (2.9 - 5.3) LA ISD 4CH W 4.3 cm (2.5 - 4.5) Name Value Normal Range LA ESV SP 4CH (A/L) 57.32 ml - LA ESV SP 2CH (A/L) 59.06 ml - LA ESV BP (A/L) 61.54 ml - LA ESV BP (A/L) index 32 ml/m2 - LA ESV SP 4CH (MOD) 53.4 ml - LA ESV SP 2CH (MOD) 55.22 ml - Name Value Normal Range MV E-wave Vmax 0.7 m/sec - MV deceleration time 179 msec - MV A-wave Vmax 0.6 m/sec - MV E:A ratio 1.2 ratio - LV septal e' Vmax 0.07 m/sec - LV lateral e' Vmax 0.06 m/sec - LV E:e' septal ratio 10 ratio - LV E:e' lateral ratio 11 ratio - Name Value Normal Range AV Vmax 1.5 m/sec - AV VTI 23.3 cm - AV peak gradient 9 mmHg - AV mean gradient 4.5 mmHg - LVOT Vmax 0.9 m/sec - LVOT VTI 14 cm - LVOT peak gradient 3.2 mmHg - LVOT mean gradient 1.6 mmHg - JAMES Vmax 0.6 m/sec - Name Value Normal Range TR Vmax 2.3 m/sec - TR peak gradient 21 mmHg - RAP 3 mmHg - RVSP 24 mmHg - IVC diameter 1.2 cm - Name Value Normal Range PV Vmax 0.7 m/sec - PV peak gradient 2 mmHg -
[2018-07-12] MEDS: Donepezil TAB* 5 MG PO SCH (17:51)
--- NOTE | 2018-07-12 22:06 | HP ---
CC: Dr. Yañez; Dr. Lundberg * HISTORY AND PHYSICAL: DATE OF ADMISSION: 07/12/18 PROVIDER: Jacque Marquez NP PRIMARY CARE PROVIDER: Dr. Francis Lundberg. ATTENDING PHYSICIAN WHILE IN THE HOSPITAL: Dr. Krysta Rizzo * (dictated by Jacque Marquez NP). CHIEF COMPLAINT: Chest pain. HISTORY OF PRESENT ILLNESS: Mr. Brewster is a 73-year-old male patient with a past medical history significant for ventricular tachycardia, hypertension, cardiomyopathy, dementia, status post AICD/pacemaker in April of 2018, who presented to the emergency room with a 3-day history of left-sided pleuritic chest pain. The patient reports that approximately 2 to 3 days ago he developed chest pain in the upper chest. He reports that it is worse with deep breath. It radiates across his upper chest and into his back and shoulders. He reports that it is a pressure and achy type pain. He does report that the pain is worse with lying flat and lying on the left side, increased with deep breath. He does also report that it is reproducible with palpation to the left chest. He denies any fever or chills. Denies any nausea or vomiting. He reports no change in appetite. The patient does have some mild cognitive impairment associated with his dementia. Per the , the reports that the patient approximately 3 days ago choked on when drinking his coffee. He did not choke on food at that time. She reports that he spit the coffee out and seemed to be fine after the episode. After that episode, the patient did start complaining of left-sided and upper chest pain worse with deep breath. She reports that last night at approximately 11 p.m. when she went to bed, the patient had previously gone to bed at 9 p.m. and when she entered the room at 11 p.m. he was complaining of pleuritic type chest pain. She gave him aspirin 650 mg p.o. She does report that the pain improved and the patient was able to go to sleep and then again woke at 4 o'clock this morning with similar pain across his upper chest, worse with deep breath and lying flat. Given these symptoms, they presented to the emergency room for further evaluation. While in the emergency room, the patient had routine lab work drawn. He did have an elevated D-dimer of greater than 1050 and CTA of the chest did not show any pulmonary embolism, but did show moderate sized pericardial effusion and bilateral pleural effusions suggestive of atelectasis. The patient was afebrile in the emergency room. He was started on azithromycin and ceftriaxone in the emergency room. Given his symptoms of left-sided chest pain, history of ventricular tachycardia with AICD placement, we were asked to see and evaluate him for admission. PAST MEDICAL HISTORY: Significant for: 1. Ventricular tachycardia with AICD placement. 2. Hypertension. 3. Cardiomyopathy. 4. Dementia. PAST SURGICAL HISTORY: AICD placement in April of 2018. HOME MEDICATIONS: Include: 1. Donepezil 5 mg p.o. daily. 2. Vitamin B12 1000 mcg p.o. daily. 3. Metoprolol succinate 100 mg p.o. daily. 4. Lisinopril 40 mg p.o. daily. ALLERGIES TO MEDICATIONS: He has an allergy to PENICILLIN and SULFA. FAMILY HISTORY: Father with history of an IL and in his 80s. Mother passed in her 70s of a cerebral aneurysm. Brother with a history of IL, coronary artery disease and stenting. SOCIAL HISTORY: Denies any tobacco or illicit drug use. Does report he drinks wine 2 to 3 days a week. He lives with his . Surrogate decision maker in the event that he is unable to make his own decisions is his , Jackie. He is a full code. REVIEW OF SYSTEMS: There was no documented fever. There has been no significant weight change. He denies any visual changes. Denies any rhinorrhea , cough, congestion, or shortness of breath. He does report chest pain with deep breath and lying on the left side. He denies any abdominal pain. No nausea, vomiting, or diarrhea. Denies any urinary frequency or urgency. Denies any loss of consciousness. Denies any pruritus or skin ulcerations. A review of 14 systems was completed and all others were negative. PHYSICAL EXAMINATION GENERAL: At this time, Mr. Brewster is a 73-year-old male. He appears well resting on the stretcher in the emergency room. He does not appear to be in any acute distress. VITAL SIGNS: Temperature was 98.7, heart rate 91, respirations 20, O2 saturation 93% on 2 L nasal cannula, blood pressure was 128/65. HEENT: Head is atraumatic, normocephalic. Eyes: EOMs are intact. Sclerae are anicteric and not pale. Oral mucosa appeared to be moist. No oropharyngeal erythema. NECK: Supple. LUNGS: Diminished bilaterally. No wheezes, rales, or rhonchi. Left anterior chest tenderness with palpation. CARDIAC: S1, S2. Regular rate and rhythm. No murmurs or gallops. ABDOMEN: Soft and nontender. Bowel sounds are present x4. EXTREMITIES: Pulses are +2 bilaterally. He is able to move all 4 extremities with 5/5 strength. NEUROLOGIC: He is awake, alert. He is oriented to time and person, mild confusion to place and situation. He does have some short-term memory difficulties. Hand drill instructor are equal. Tongue is midline. Speech is clear. There are no gross focal deficits. SKIN: Intact. DIAGNOSTIC STUDIES/LAB DATA: WBCs are 9.1, RBCs 4.15, hemoglobin of 14.2, hematocrit was 42, MCVs were 100, MCH was 34, platelet count was 307. D-dimer was greater than 1050. Chemistry: Sodium 135, potassium 4.3, chloride 102, carbon dioxide was 24, anion gap was 9, BUN was 26, creatinine 1.16, glucose 121 , calcium 9.2. T bili 0.90, ASTs were 14, ALTs were 25. C-reactive protein was 130. Troponin was 0.00 x2. BNP was 60. Procalcitonin was less than 0.1. He had a chest x-ray on 07/12/18. Radiologist's impression: Cardiomegaly increased in size, bibasilar infiltrates. He had a CT of the chest on 07/12/18. Radiologist's impression: Limited study. No evidence of pulmonary embolism. Moderate size pericardial effusion, bilateral pleural effusions, bilateral lower lobe infiltrates suggestive of atelectasis, less likely pneumonia. He had an EKG that showed sinus rhythm, rate of 81 with a right bundle branch block. He has an echocardiogram that is currently pending. ASSESSMENT AND PLAN: Mr. Brewster is a 73-year-old male with a past medical history significant for hypertension, mild dementia, ventricular tachycardia with AICD placement, who presented to the emergency room with left-sided pleuritic type chest pain. He will be admitted under observation for: 1. Chest pain. This appears to be pleuritic in nature. He does have pleural effusion on the left side as well as the right. He also has CT evidence of pericardial effusion. The patient does report that he has increased pain with deep breath and lying on the left side. He recently had a cardiac catheterization in April of 2018, which did not show any stenosis at that time. His EF was 45%. He currently has a transthoracic echocardiogram that is currently pending to evaluate the pericardial effusion. The patient does experience significant pain with deep breath and does have some reproducible chest pain with palpitation to the left anterior chest about 2 cm below the nipple. He did have a CTA of the chest that did not show Pulmonary embolism. Given that his CRP is elevated and the pleural effusion, we will treat him with azithromycin and ceftriaxone. His CRP is elevated at 130 and he was hypoxic on admission to the emergency room with O2 saturation of 88%. I will also consult Dr. Argueta in regards to the need for thoracentesis. We will continue to trend his troponins. We will monitor him on telemetry. 2. Hypertension. The patient currently takes lisinopril 40 mg and metoprolol 100 mg at home. I will continue him on lisinopril 20 mg p.o. daily and his metoprolol 100 mg p.o. daily. His blood pressure was soft in the emergency room. 3. Ventricular tachycardia with AICD placement. I will continue on metoprolol 100 mg p.o. daily as he was recently restarted on 100 mg of metoprolol by his playground attendant, Dr. Yañez. 4. Dementia. He will continue on his Aricept as previously prescribed. 5. Fluids, electrolytes, and nutrition: He will be placed on a heart-healthy, decaf okay diet. 6. Code status: He is a full code. 7. DVT prophylaxis: I will place him on heparin 5000 units subcu q.8 hours. 8. Disposition: He will be placed under observation on telemetry. TIME SPENT: Time spent on this admission was approximately 60 minutes, greater than half of that time was spent [id number] with the patient and his obtaining my history and physical, the other half of the time was spent going over my plan of care and implementing my plan of care. I have discussed this with my attending, Dr. Krysta Rizzo; she is in agreement with my plan. JACQUE MARQUEZ, HANDBAG PARTS CUTTER [id number]/[facility] #: [id number] [facility]
[2018-07-12 22:32] LABS: Urine Appearance Cloudy; Urine Blood 1+ (Negative); Urine Color Amber; Urine Ketones Negative (Negative); Urine Protein Negative (Negative); Urine Red Blood Cell Trace(0-2/hpf) (Absent); Urine Specific Gravity 1.036 (1.010-1.030); Urine Urobilinogen Negative (Negative); Urine White Blood Cell Absent (Absent)
[2018-07-13] MEDS: Heparin VIAL(*) 5000 UNITS/ML VIAL (FIVE THOUSAND) SUBCUT SCH ×3 (06:17→20:29)
[2018-07-13 07:29] LABS: ABS Basophils 0.1 10^3/ul (0-0.2); ABS Eosinophils 0.1 10^3/ul (0-0.6); ABS Lymphocytes 0.6 10^3/ul (1.0-4.8); ABS Monocytes 0.6 10^3/ul (0-0.8); ABS Neutrophils 5.7 10^3/ul (1.5-7.7); ABS Nucleated RBC 0 10^3/ul; Eosinophil % 1.6 %; Hematocrit 40 % (42-52); Hemoglobin 13.7 g/dl (14.0-18.0); Lymphocyte % 8.7 %; Mean Corpuscular HGB Conc 34 g/dl (31-36); Mean Corpuscular Hemoglobin 34 pg (27-31); Mean Corpuscular Volume 99 fL (80-94); Mean Platelet Volume 6.9 fL (7.4-10.4); Nucleated Red Blood Cells % 0; Platelet Count 324 10^3/ul (150-450); Red Cell Distribution Width 14 % (10.5-15)
[2018-07-13] MEDS ORDERED: Azithromycin TAB* 250 MG PO SCH ×2 (09:00)
[2018-07-13] MEDS: cefTRIAXone(*) 1 GM in NS 0.9% 50 ML* 50 ML IVPB SCH (09:52)
[2018-07-13] MEDS: Lisinopril TAB* 10 MG PO SCH (09:53)
[2018-07-13] MEDS: Cyanocobalamin TAB* 500 MCG PO SCH (09:53)
[2018-07-13] MEDS: Metoprolol Succinate XL TAB* 100 MG PO SCH (09:53)
[2018-07-13] MEDS: Azithromycin IV(*) 500 MG in NS 0.9% 250 ML* 250 ML IVPB SCH (13:05)
--- NOTE | 2018-07-13 15:46 | CONS ---
PULMONARY CONSULTATION REPORT: DATE OF CONSULT: 07/13/18 CONSULTATION REQUESTED BY: Jacque Marquez NP REASON FOR CONSULTATION: Evaluation of pleural effusion. HISTORY OF PRESENT ILLNESS: The patient is a 73-year-old male with history of ventricular tachycardia, hypertension, cardiomyopathy, dementia, status post AICD placement in April of 2018. The patient presents to the emergency room for evaluation of chest discomfort for the past 2 to 3 days. The patient reports inability to take deep breath. The patient reports cough, which is mostly dry, intermittently productive of clear phlegm. The patient denies fevers or chills. The patient denies nausea, vomiting, loss of weight or appetite. The patient also reports choking while drinking coffee. Denies choking with solid food. The patient started having the left side pain that gets worse with deep breath since that time. The patient continued to have the pain which was gradually worsening, which acutely woke him up from sleep and worsened with deep breathing and lying down flat. The patient presents for further evaluation. Further evaluation in the emergency room revealed a D- dimer of 1050. The patient subsequently underwent a CT of the chest. I have personally reviewed the CTA of the chest and with the patient today. The patient with evidence of bilateral effusions, more of the left side, moderate in size on left with atelectasis. No significant mediastinal or hilar adenopathy was noted. No filling defects were noted. The patient also noted to have moderate amounts of pericardial effusions. The patient had echocardiogram, which showed normal systolic function with EF of 50% to 55%, right ventricular systolic function low normal with no evidence of pulmonary hypertension and a trivial pericardial effusion. The patient seen and examined at bedside this morning. The patient reports slight improvement in his pain, still complains of discomfort with deep breath. He was able to lie down and sleep last night. The patient had elevated temperature at 101.2 while in the emergency room. He had low-grade fevers overnight. He has been requiring O2 supplementation at 3 L per minute. He did not appear to be in any distress. He denied any other issues at this time. Denied sick contacts, recent travel. He is planning on going to [place] for the winter. He was started on antibiotics for community acquired pneumonia. PAST MEDICAL HISTORY: 1. Ventricular tachycardia, status post AICD placement. 2. Hypertension. 3. Cardiomyopathy. 4. Dementia. PAST SURGICAL HISTORY: AICD placement in April of 2018. MEDICATIONS: At home, 1. Donepezil. 2. Vitamin B12. 3. Metoprolol. 4. Lisinopril. ALLERGIES: PENICILLIN, SULFA. FAMILY HISTORY: Father with MA, passed in 80s. Mother passed in 70s with cerebral aneurysm. Brother has history of MA and coronary artery disease. SOCIAL HISTORY: No tobacco or drug abuse. Drinks wine 2 to 3 days a week. Lives at home with his . REVIEW OF SYSTEMS: All 14 systems reviewed and as per HPI. PHYSICAL EXAM: Elderly male in bed in no apparent distress. Vital Signs: Temperature 99.2, pulse 75 beats per minute, respiratory rate 19 per minute, O2 sat 95% on 3 L, blood pressure 108/58. HEENT: Pupils equal, reactive to light. Mucous membranes moist. Lungs: Good air entry bilaterally, diminished at bases bilaterally left greater than right. Cardiovascular: S1, S2 present , regular. No murmurs, gallops or rubs. Abdomen: Soft, nontender, nondistended. Bowel sounds present. Extremities: Normal range of motion. No edema. Skin: No rash or bruits. Neuro: Alert, awake, oriented x3. No focal deficits. DIAGNOSTIC STUDIES/LAB DATA: WBC count 7.0, hemoglobin 13.7, hematocrit 40, platelet count 324 with no left shift. Sodium 134, potassium 4.4, chloride 103 , bicarb 24, BUN 37, creatinine 1.34. Troponins within normal limits. Procalcitonin less than 0.1. BNP 60. UA was negative. CTA of the chest and echocardiogram as described above in HPI. IMPRESSION AND RECOMMENDATIONS: 73-year-old male with history of ventricular arrhythmia, status post AICD placement with pleuritic chest pain, found to have pericardial and pleural effusions bilaterally, left great than right, also with fevers and hypotension overnight. 1. The patient with recent aspiration episode, fever, pleural fluid, concerning for infection. 2. Viral process also likely given both pericardial and pleural effusions. 3. The patient had AICD placement in April, will need to evaluate significance of this pleural effusion and pericardial effusion. Will schedule the patient for ultrasound-guided thoracentesis for diagnostic evaluation and also for therapeutic benefit. Procedure was discussed in detail with the patient. Associated risks and benefits were thoroughly explained. The patient has a history of mild dementia, will also discuss with patient's . He is on coverage for community-acquired pneumonia at this time. Still continued to have low-grade fevers overnight. I think pleural fluid analysis will help delineate the etiology further. Recommend cardiology consultation for evaluation of pericardial effusion. Thank you for allowing me to participate in the care of the patient. Will follow up with you. [id number]/[facility] #: [id number] [place]
--- NOTE | 2018-07-13 17:04 | PN ---
Subjective Date of Service: 07/13/18 Interval History: Patient seen and examined. States increased pain in the far lateral left ribcage and into the axilla and difficulty taking a deep breath. Discussed this is likely secondary to thoracentesis today. Denies acute SOB, no chest pain, no fevers or chills. He is very agitated at his roommate and guests that are visiting. Objective Active Medications: Acetaminophen (Tylenol Tab*) 650 mg PO Q4H PRN PRN Reason: FEVER/PAIN Last Admin: 07/12/18 14:31 Dose: 650 mg Cyanocobalamin (Vitamin B12 Tab*) 1,000 mcg PO DAILY [facility] Last Admin: 07/13/18 09:53 Dose: 1,000 mcg Donepezil HCl (Aricept Tab*) 10 mg PO QPM [facility] Last Admin: 07/12/18 17:51 Dose: 10 mg Heparin Sodium (Porcine) (Heparin Vial(*)) 5,000 units SUBCUT Q8HR [facility] Last Admin: 07/13/18 13:44 Dose: 5,000 units Ceftriaxone Sodium 1 gm/ (Sodium Chloride) 50 mls @ 200 mls/hr IVPB Q24H [facility] Last Admin: 07/13/18 09:52 Dose: 200 mls/hr Azithromycin 500 mg/ Sodium (Chloride) 250 mls @ 250 mls/hr IVPB Q24H [facility] Last Admin: 07/13/18 13:05 Dose: 250 mls/hr Lisinopril (Prinivil Tab*) 20 mg PO DAILY [facility] Last Admin: 07/13/18 09:53 Dose: Not Given Metoprolol Succinate (Toprol Xl Tab*) 100 mg PO DAILY [facility] Last Admin: 07/13/18 09:53 Dose: 100 mg Vital Signs - 8 hr 07/13/18 07/13/18 07/13/18 11:36 13:15 14:39 Temperature 97.3 F 98.9 F 97.9 F Pulse Rate 73 75 75 Respiratory 20 18 Rate Blood Pressure 103/63 115/62 (mmHg) O2 Sat by Pulse 93 96 95 Oximetry 07/13/18 14:51 Temperature 97.9 F Pulse Rate 80 Respiratory 19 Rate Blood Pressure 115/60 (mmHg) O2 Sat by Pulse 95 Oximetry Oxygen Devices in Use Now: None Appearance: alert, mild distress Eyes: No Scleral Icterus, PERRLA Ears/Nose/Mouth/Throat: NL Teeth, Lips, Gums, Clear Oropharnyx, Mucous Membranes Moist Neck: NL Appearance and Movements; NL JVP, Trachea Midline Respiratory: - - shallow respirations, diminished bilaterally, no wheeze or rhonchi Cardiovascular: NL Sounds; No Murmurs; No JVD, RRR, No Edema Extremities: No Edema Skin: No Rash or Ulcers Neurological: Alert and Oriented x 3, NL Sensation Nutrition: Taking PO's Result Diagrams: 07/13/18 07:15 07/13/18 07:14 Microbiology and Other Data: Microbiology 07/13/18 12:35 Gram Stain - Final Body Fluid - Pleura 07/12/18 14:05 Aerobic Blood Culture - Preliminary Blood Venous No Growth Day 1 Anaerobic Blood Culture - Preliminary No Growth Day 1 07/12/18 14:05 Aerobic Blood Culture - Preliminary Blood Venous No Growth Day 1 Anaerobic Blood Culture - Preliminary No Growth Day 1 07/12/18 21:26 Legionella Urinary Antigen - Final Urine Negative Legionella Antigen Streptococcus pneumoniae Ag Screen - Final Negative S. pneumo Antigen Assess/Plan/Problems-Billing Assessment: This is a 73 year old male that presented to the ER with complaint of left sided pleuritic chest pain, found to have bilateral pleural effusions. - Patient Problems (1) Bilateral pleural effusion Code(s): J90 - PLEURAL EFFUSION, NOT ELSEWHERE CLASSIFIED SNOMED Code(s): 064922640 Comment: - Etiology unclear, patient does have significant cardiac/medical history - Reproducible chest and rib pain pleuritic and reproducible - Afebrile, not in volume overload - S/P US guided thoracentesis today, follow pathology - Consult with Dr. Argueta appreciated today - Continue azithromycin for 3 more days - May consider cardiology consultation if no improvment tomorrow - Add percocet for comfort (2) History of ventricular tachycardia Code(s): Z86.79 - PERSONAL HISTORY OF OTHER DISEASES OF THE CIRCULATORY SYSTEM SNOMED Code(s): 173712592468513 Comment: - PM/AICD implanted in april - Continue tele, no aberrancy noted (3) Cognitive deficits Code(s): R41.89 - OTH SYMPTOMS AND SIGNS W COGNITIVE FUNCTIONS AND AWARENESS SNOMED Code(s): 959097758 Comment: - Patient somewhat disagreeable with staff this afternoon but improved when came - Continue supportive care (4) Hypertension Code(s): I10 - ESSENTIAL (PRIMARY) HYPERTENSION SNOMED Code(s): 24347424 Comment: - BP low/normal on metoprolol (5) DVT prophylaxis Code(s): LJS2020 - SNOMED Code(s): 951985757 Comment: - ambulatory (6) Full code status Code(s): Z78.9 - OTHER SPECIFIED HEALTH STATUS SNOMED Code(s): 583164816 Status and Disposition: Inpatient, anticipate DC home when medically stable
[2018-07-13] MEDS: oxyCODONE/Acetamin 5/325 MG* TAB PO PRN (17:29)
[2018-07-13] MEDS: Donepezil TAB* 5 MG PO SCH (17:29)
[2018-07-14] MEDS: Heparin VIAL(*) 5000 UNITS/ML VIAL (FIVE THOUSAND) SUBCUT SCH ×2 (05:14→14:44)
--- NOTE | 2018-07-14 09:25 | PRO ---
THORACENTESIS REPORT: DATE OF PROCEDURE: 07/13/18 PROCEDURE PERFORMED: Ultrasound-guided thoracentesis on the left side. PREPROCEDURAL DIAGNOSIS: Ipzyexjp-tz-cbcng-sized left pleural effusion. POSTPROCEDURAL DIAGNOSIS: Moderate left pleural effusion. ANESTHESIA: Local anesthesia with 1% lidocaine. DESCRIPTION OF PROCEDURE: Informed consent was obtained from the patient after the risks and benefits were thoroughly explained. The patient was sitting up, leaning forward during the procedure. Strict aseptic precautions and barrier techniques were utilized. A portable ultrasound was utilized at bedside to localize large amounts of fluid on the left side. Chlorhexidine was used to disinfect the skin. Ultrasound guidance was used and site was marked in posterior axillary line. Area was anesthetized with lidocaine. A CareFusion 8- Estonian thoracentesis catheter was utilized. A stab incision was made to facilitate the passage of the catheter. Catheter was then inserted under manual suction taking precautions. Catheter was left in place and needle was removed. 650 mL of dark yellow fluid was removed under manual suction. The patient tolerated the procedure well. Catheter was then removed. Postprocedure chest x -ray was ordered and verified by me, no evidence of pneumothorax. Fluid was sent to the lab for cytological, biochemical and hematological exam. [id number]/[facility] #: [id number] [facility]
[2018-07-14] MEDS: Lisinopril TAB* 10 MG PO SCH (09:29)
[2018-07-14] MEDS: cefTRIAXone(*) 1 GM in NS 0.9% 50 ML* 50 ML IVPB SCH (09:29)
[2018-07-14] MEDS: Metoprolol Succinate XL TAB* 100 MG PO SCH (09:29)
[2018-07-14] MEDS: Cyanocobalamin TAB* 500 MCG PO SCH (09:29)
[2018-07-14] MEDS: oxyCODONE/Acetamin 5/325 MG* TAB PO PRN (09:30)
[2018-07-14 14:42] VITALS: BP 102/58
[2018-07-14] MEDS: Azithromycin IV(*) 500 MG in NS 0.9% 250 ML* 250 ML IVPB SCH (14:44)
--- NOTE | 2018-07-14 16:01 | PN ---
Subjective Date of Service: 07/14/18 Interval History: Mr. Brewster reports that he is feeling much better. He denies chest pain or SOB. He has been up ambulating around the unit and did not need oxygen during his second lap around the unit. He further denies nausea or abdominal pain. He is eager for discharge to home. Objective Active Medications: Acetaminophen (Tylenol Tab*) 650 mg PO Q4H PRN Cyanocobalamin (Vitamin B12 Tab*) 1,000 mcg PO DAILY [facility] Donepezil HCl (Aricept Tab*) 10 mg PO QPM [facility] Heparin Sodium (Porcine) (Heparin Vial(*)) 5,000 units SUBCUT Q8HR [facility] Ceftriaxone Sodium 1 gm/ (Sodium Chloride) 50 mls @ 200 mls/hr IVPB Q24H [facility] Azithromycin 500 mg/ Sodium (Chloride) 250 mls @ 250 mls/hr IVPB Q24H [facility] Lisinopril (Prinivil Tab*) 20 mg PO DAILY [facility] Metoprolol Succinate (Toprol Xl Tab*) 100 mg PO DAILY [facility] Oxycodone/Acetaminophen (Percocet 5/325 Tab*) 1 tab PO Q4H PRN Vital Signs: Temp Pulse Resp BP Pulse Ox 97.8 F 68 18 102/58 93 07/14/18 14:41 07/14/18 14:41 07/14/18 14:41 07/14/18 14:41 07/14/18 14:41 Oxygen Devices in Use Now: None Appearance: Male sitting up in bed in NAD Eyes: No Scleral Icterus Ears/Nose/Mouth/Throat: Mucous Membranes Moist Neck: Trachea Midline Respiratory: Symmetrical Chest Expansion and Respiratory Effort, Clear to Auscultation Cardiovascular: NL Sounds; No Murmurs; No JVD, No Edema Abdominal: NL Sounds; No Tenderness; No Distention Extremities: No Edema Skin: No Rash or Ulcers Neurological: Alert and Oriented x 3, NL Muscle Strength and Tone Nutrition: Taking PO's Result Diagrams: 07/13/18 07:15 07/13/18 07:14 Microbiology and Other Data: . Assess/Plan/Problems-Billing Assessment: Mr. Brewster is a 73 year old male that presented to the ER with complaint of left sided pleuritic chest pain, found to have bilateral pleural effusions. - Patient Problems (1) Bilateral pleural effusion Comment: - No chest pain, not hypoxic, not SOB - Suspect parapneumonic effusion, perhaps secondary to episode of aspiration prior to admission - S/P US guided thoracentesis, neutrophils elevated in fluid - Consult with Dr. Argueta appreciated today - Continue ceftin (x8) and azithromycin (x3), recommend close follow up with Dr. Lundberg but could also consider follow up with Dr. Argueta (2) History of ventricular tachycardia Comment: - PM/AICD implanted in april - Continue tele, no aberrancy noted (3) Hypertension Comment: - BP low/normal on metoprolol (4) DVT prophylaxis Comment: - ambulatory (5) Full code status Comment: Status and Disposition: Inpatient, discharge to home. Patient strongly encouraged to return to ED with fever, chest pain, or SOB.
--- NOTE | 2018-07-15 06:08 | DS ---
CC: Dr. Lundberg * [facility] MEDICINE DISCHARGE SUMMARY: DATE OF ADMISSION: 07/12/18 DATE OF DISCHARGE: 07/14/18 PRIMARY CARE PHYSICIAN: Dr. Lundberg. ATTENDING PHYSICIAN: Dr. Krysta Rizzo * (dictated provided by Marianna Frias NP) . PRIMARY DIAGNOSIS: Suspected parapneumonic bilateral pleural effusions, status post aspiration event prior to admission. SECONDARY DIAGNOSES: 1. History of ventricular tachycardia with automatic implantable cardioverter- defibrillator placement. 2. Hypertension. 3. Cardiomyopathy. 4. Dementia. MEDICATIONS AT THE TIME OF DISCHARGE: 1. Metoprolol succinate 100 mg p.o. daily. 2. Lisinopril 40 mg p.o. daily. 3. Cyanocobalamin 1000 mcg p.o. daily. 4. Donepezil 10 mg p.o. q.p.m. 5. Doxycycline 100 mg p.o. b.i.d. 6. Cefpodoxime 200 mg p.o. q.12 hours. HOSPITAL COURSE: Mr. Brewster is a 73-year-old male, who presented to the hospital on 07/12/18 with concern for chest pain. Please see the dictated H and P from Jacque Marquez NP, for complete details. In brief, the patient had report of an AICD pacemaker placement in April of 2018. On arrival to the ED, he reported 3 days of left-sided pleuritic chest pain. He denied fevers or chills. Otherwise, note was made of the fact that the patient had choked while drinking coffee immediately prior to the onset of the symptoms of pleuritic chest pain. In the emergency room, the patient a D-dimer greater than 1050 and therefore he had a CTA of the chest, which did not show pulmonary embolism but did show moderate-sized pericardial effusion and bilateral pleural effusion suggestive of atelectasis. Mr. Brewster was admitted to the hospital for his pleural effusion. He was placed on ceftriaxone and azithromycin. In workup of the causation of the pleural effusion and of the degree of severity of the pericardial effusion, the patient did have a transthoracic echocardiogram; it showed only a trivial pericardial effusion and that the ejection fraction was intact at 50% to 55%. There were no significant valvular or wall motion abnormalities. The patient was seen in consultation by Dr. Argueta, who recommended thoracentesis, which was performed on 07/13/18. The fluid analysis shows that there was 3022 wbc's, 750 rbc's, and 75% neutrophils consistent with likely acute inflammation and perhaps related to a parapneumonic effusion. Mr. Brewster is doing well. He has been up and ambulating on the unit without chest pain or shortness of breath. He is not hypoxic with mobility. He has had no fever since 07/12/18 at 7 o'clock p.m. His vitals were stable. He has no leukocytosis. Mr. Brewster is medically stable for discharge to home. He will need to follow up with Dr. Lundberg closely, who can monitor the results of the pleural fluid cultures, which thus far are pending. The patient is also recommended to consider followup with Dr. Argueta if indicated. DISPOSITION: Home. DIET: Low fat, low salt. ACTIVITY: As tolerated. FOLLOWUP PLANS: 1. Please follow up with Dr. Argueta within the next 1 to 2 weeks. 2. Please follow up with Dr. Lundberg in the next week. TIME SPENT: Approximately 60 minutes was spent on the discharge of this patient , more than half the time was spent with the patient at the bedside reviewing the events leading up to and during this hospitalization, performing the physical examination, and reviewing my plan of care. MARIANNA FRIAS NP [id number]/[facility] #: [id number] [place]
== END 2018-07-14 17:45 | disposition home or self-care (01) | DRG 186 ==
LOC: ED 05:57 → MEDTELE 12:21 → OBSVTOIN 07-13 15:44
PROVIDERS: ADMIT Internal Medicine; ATTEND Internal Medicine
PROC: 0W9B3ZZ Drainage of Left Pleural Cavity, Percutaneous Approach (ICD-10-PCS; principal; 2018-07-13)
DX: J90 Pleural effusion, not elsewhere classified (principal); J18.9 Pneumonia, unspecified organism; I42.9 Cardiomyopathy, unspecified; I31.3 Pericardial effusion (noninflammatory); J98.11 Atelectasis; I45.10 Unspecified right bundle-branch block; R41.89 Other symptoms and signs involving cognitive functions and awareness; F03.90 Unspecified dementia, unspecified severity, without behavioral disturbance, psychotic disturbance, mood disturbance, and anxiety; I10 Essential (primary) hypertension; Z88.0 Allergy status to penicillin; Z88.2 Allergy status to sulfonamides; Z72.89 Other problems related to lifestyle; Z95.810 Presence of automatic (implantable) cardiac defibrillator; Z82.49 Family history of ischemic heart disease and other diseases of the circulatory system
CPT/HCPCS: 36415; 71045; 71275; 76604; 80048; 80053; 81003; 81015; 82042; 82945; 83615; 83880; 83986; 84145; 84157; 84311; 84484; 85025; 85379; 86140; 87040; 87205; 87640; 87641; 87899; 88112; 88305; 89051; 93005; 93306; 99285; A9270-GY; G0378; J0456; J0696; J1644; Q9967

== ENCOUNTER 2019-08-05 12:05 | Emergency (ER) | payer MEDICARE, BC ==
--- NOTE | 2019-08-05 12:30 | ED ---
Back Pain - HPI Summary HPI Summary: This pt is a 74 y/o male presenting to [facility] c/o lower back pain for the past week. Pt describes a nonradiating pain that is aggravated with movement and car bumps. He notes his pain is intermittent and positional. He currently rates his back pain 8 or 9 out of 10 in severity. Pt notes he has been retired for quite a while now and does not do much work. Denies recent trauma or fall. Patient has been able to walk normally until today. states while at the store patient sat on the toilet and when he came out he had a difficult time standing up and walking, bending. Denies numbness, tingling, or weakness in LE, fever, chills, nausea, vomiting, bladder or bowel incontinence, saddle anesthesia, dysuria, hematuria. Pt took 500 mg of Tylenol at 1100 today. Pt went to see a chiropractor 4 days ago and was told it was bone related. Pt saw his PCP yesterday and was told it was lower lumbar and gave him exercises to do at home and take Tylenol. Pt has hx of sciatica last year where he was given Oxycodone and Meloxicam, which seemed to help. Denies hx of IVDU. Denies hx of DM. PMHx: defibrillator. Pt is unable to get MRI due to defibrillator. Per , pt had heart work up last year and it was all normal. Pt was admitted overnight at a hospital in [facility] for arrhythmia on 04/19/19. Pt drinks 4 glasses of wine daily. Denies tobacco or drug use. NKDA. Medications reviewed. Allergies noted. - History of Current Complaint Chief Complaint: EDBackInjuryPain Stated Complaint: LOWER BACK PAIN PER PT Time Seen by Provider: 08/05/19 12:18 Hx Obtained From: Patient, Family/Longwall Shearer Operator - Onset/Duration: Lasting Days, Still Present Onset/Duration: Started Days Ago, Still Present Timing: Lasting Days Back Pain Location: Is Discrete @ - lower back Severity Currently: Severe Pain Intensity: 9 Pain Scale Used: 0-10 Numeric Character: Aching Aggravating Symptom(s): Movement Alleviating Symptom(s): Rest Associated Signs And Symptoms: Negative: Fever, Weakness, Numbness, Tingling, Bladder Incontinence, Bowel Incontinence, Other - NEGATIVE: nausea, vomiting, dysuria, hematuria - Allergies/Home Medications Allergies/Adverse Reactions: Allergies Allergy/AdvReac Type Severity Reaction Status Date / Time Penicillins AdvReac Rash Verified 08/05/19 12:09 Sulfa (Sulfonamide AdvReac Rash Verified 08/05/19 12:09 Antibiotics) PMH/Surg Hx/FS Hx/Imm Hx Endocrine/Hematology History: Denies: Hx Anticoagulant Therapy, Hx Diabetes Cardiovascular History: Reports: Hx Pacemaker/ICD - 9/18 due to arrhythmia this year, Other Cardiovascular Problems/Disorders - [place] Denies: Hx Cardiac Arrest, Hx Coronary Artery Disease, Hx Hypercholesterolemia, Hx Hypertension Respiratory History: Denies: Hx Chronic Obstructive Pulmonary Disease (COPD), Other Respiratory Problems/Disorders History: Reports: Other Problems/Disorders - MILLY Denies: Hx Dialysis, Hx Renal Disease Sensory History: Reports: Hx Contacts or Glasses, Hx Hearing Aid, Hx Hearing Problem Opthamlomology History: Reports: Hx Contacts or Glasses Neurological History: Reports: Hx Dementia Denies: Hx CVA, Hx Transient Ischemic Attacks (TIA) - Surgical History Surgical History: Yes Surgery Procedure, Year, and Place: pacemaker placement April 2018 Infectious Disease History: No Infectious Disease History: Denies: Hx of Known/Suspected MRSA, Traveled Outside the [place] in Last 30 Days - Family History Known Family History: Positive: Cardiac Disease Family History: Heart attack brother at age 53 - Social History Occupation: Retired - [employer] Alcohol Use: Daily Alcohol Amount: 4 glasses of wine Hx Substance Use: No Substance Use Type: Reports: None Hx Tobacco Use: No Smoking Status (MU): Never Smoked Tobacco Review of Systems Negative: Fever Negative: Vomiting, Nausea Negative: dysuria, hematuria, incontinence Musculoskeletal: Other - POSITIVE: lower back pain Neurological: Other - NEGATIVE: saddle anesthesia Negative: Weakness, Paresthesia, Numbness All Other Systems Reviewed And Are Negative: Yes Physical Exam - Summary Physical Exam Summary: Constitutional: Well-developed, Well-nourished, Alert. (-) Distressed Skin: Warm, Dry HENT: Normocephalic; Atraumatic Eyes: Conjunctiva normal Neck: Musculoskeletal ROM normal neck. (-) JVD, (-) Stridor, (-) Tracheal deviation Cardio: Rhythm regular, rate normal, Heart sounds normal; Intact distal pulses; The pedal pulses are 2+ and symmetric. Radial pulses are 2+ and symmetric. (-) Murmur. Bedside ultrasound shows normal abdominal aorta. Pulmonary/Chest wall: Effort normal. (-) Respiratory distress, (-) Wheezes, (-) Rales Abd: Soft, (-) tenderness, (-) Distension, (-) Guarding, (-) Rebound Musculoskeletal: (-) Edema. Limited ROM in lower back but able to range back. Normal strength and sensation in bilateral legs. Lymph: (-) Cervical adenopathy Neuro: Alert, Oriented x3 Psych: Mood and affect Normal Triage Information Reviewed: Yes Vital Signs On Initial Exam: Initial Vitals Temp Pulse Resp BP Pulse Ox 97.9 F 60 16 152/77 97 08/05/19 12:07 08/05/19 12:07 08/05/19 12:07 08/05/19 12:07 08/05/19 12:07 Vital Signs Reviewed: Yes Procedures - Sedation Patient Received Moderate/Deep Sedation with Procedure: No Diagnostics - Vital Signs Vital Signs Temp Pulse Resp BP Pulse Ox 08/05/19 12:07 97.9 F 60 16 152/77 97 - Laboratory Lab Statement: Any lab studies that have been ordered have been reviewed, and results considered in the medical decision making process. - Radiology Lumbar spine XR Radiology Interpretation Completed By: Radiologist Summary of Radiographic Findings: IMPRESSION: Degenerative changes of the lumbar spine without radiographically apparent acute fracture or dislocation. Dr. Meeks has reviewed this report. Back Pain Course/Dx - Course Course Of Treatment: Patient is here with a couple of days of lower back pain. Patient has no symptoms consistent with epidural abscess or cauda equina. Given patient's age, not sure was obtained to evaluate for pathologic fracture which was negative. Patient was offered pain medication but declined. Patient is discharged with lidocaine patches. Patient has meloxicam at home he can take. - Diagnoses Provider Diagnoses: Lower back pain Discharge ED - Sign-Out/Discharge Documenting (check all that apply): Patient Departure - Discharge home - Discharge Plan Condition: Stable Disposition: HOME Prescriptions: Lidocaine PATCH 5%* [Lidoderm 5% Patch*] 1 patch TRANSDERM DAILY 7 Days #7 patch Patient Education Materials: Back Pain (ED) Referrals: Francis Lundberg MD [Primary Care Provider] - Additional Instructions: You can try to take Meloxicam but only 1 dose a day. Continue taking Tylenol for the pain. Try the lidocaine patches prescribed. PLEASE RETURN TO EMERGENCY DEPARTMENT FOR ANY NEW OR WORSENING SYMPTOMS. Please follow up with your primary care physician in a couple of days. - Billing Disposition and Condition Condition: STABLE Disposition: Home - Attestation Statements Document Initiated by Shefali: Yes Documenting Scribe: Lynda Huitron Provider For Whom Yueibe is Documenting (Include Credential): Anthony Meeks MD Scribe Attestation: Lynda Betts, scribed for Anthony Meeks MD on 08/05/19 at 1832. Scribe Documentation Reviewed: Yes Provider Attestation: The documentation as recorded by the Lynda rousseau accurately reflects the service I personally performed and the decisions made by me, Anthony Meeks MD Status of Scribe Document: Viewed
--- OUTSIDE RECORDS SUMMARY | 2019-08-05 13:03 | XMS REPORT | Summary of Care ---
:1945 Author Organization [facility] Address [address] [place] [address] Care Team Providers Name Role Phone Francis Lundberg Primary Care Provider Bessie Argueta MD Unavailable Reason for Visit Reason Comments Low Back Pain Right low back pain that goes in to the buttocks. Encounter Details Date Type Department Care Team Description 08/04/2019 Office Visit [place] [facility] Francis Lundberg, Strain of lumbar Medicine MD region, initial [address] encounter (Primary Dx) [place] [address] [place] [address] [phone] Allergies Active Allergy Reactions Severity Noted Date Comments Sulfa Antibiotics Rash 04/09/2012 Bactrim Ds Other, Rash 04/09/2012 Head ache documented as of this encounter (statuses as of 08/04/2019) Medications Medication Sig Dispensed Refills Start Date End Date Status fluocinonide (LIDEX) APPLY TWICE 60 g 5 08/06/2017 Active 0.05 % Apply externally DAILY TO RED Cream ITCHY SPOTS Cyanocobalamin (VITAMIN Take 1 Tab by 30 Tab 5 08/11/2017 Active B-12) 1000 MCG Oral Tab mouth TWICE DAILY. lisinopril (PRINIVIL, Take 1 Tab by 90 Tab 3 09/08/2018 09/08/2019 Active ZESTRIL) 20 MG Oral Tab mouth DAILY. Dutasteride 0.5 MG Oral Take 1 Cap by 90 Cap 3 12/23/2018 Active Cap mouth DAILY. donepezil (ARICEPT) 5 TAKE ONE TABLET 90 Tab 5 05/08/2019 Active MG Oral Tab BY MOUTH IN THE EVENING WITH SUPPER FOR 14 DAYS THEN TWO IN THE EVENING WITH SUPPER metoprolol succinate TAKE ONE TABLET 30 Tab 11 06/12/2019 Active (TOPROL XL) 100 MG Oral BY MOUTH EVERY TABLET SR 24 HR DAY documented as of this encounter (statuses as of 08/04/2019) Active Problems Problem Noted Date Other specified hypothyroidism 04/20/2018 Ventricular tachycardia 04/20/2018 Short-term memory loss 12/01/2017 Non-cardiac chest pain 03/14/2014 Overview: Rule out myocardial infarction and stress test negative winter Right bundle branch block 07/04/2012 Overview: ECG 1998 Osteoarthritis, 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 Overview: Right shoulder Dr Estrella orthopedic surgery [facility] Essential hypertension 01/12/2012 Mixed hyperlipidemia 01/12/2012 Overview: The 10-year ASCVD risk score (Kamini PAYAN Jr., et al., 2013) is: 26.6% Values used to calculate the score: Age: 72 years Sex: Male Is Non- : No Diabetic: No Tobacco smoker: No Systolic Blood Pressure: 130 mmHg Is BP treated: Yes HDL Cholesterol: 58 mg/dL Total Cholesterol: 212 mg/dL February 2018 Elevated prostate specific antigen (PSA) 01/12/2012 Overview: psa 2011 Dr Chuy Cisse urology Cystoscopy X2 normal documented as of this encounter (statuses as of 08/04/2019) Immunizations Name Administration Dates Next Due Influenza (IM) Preservative Free 06/09/2013, 06/15/2012 Influenza Vaccine 65 Yrs + 05/31/2019 Influenza Vaccine High Dose 05/30/2018, 06/03/2017, 05/26/2016, 07/16/2015, 05/23/2014 PNEUMOCOCCAL POLYSACCHARIDE VACCINE 02/04/2012 Pneumococcal Conjugate(13 Valent) 05/26/2016 documented as of this encounter Social History Tobacco Use Types Packs/Day Years Used Date Never Smoker Smokeless Tobacco: Never Used Alcohol Use Drinks/Week oz/Week Comments Yes 6 Standard drinks or equivalent 12.0 red wine 6 Glasses of wine Sex Assigned at Date Recorded Not on file Job Start Date Occupation Industry Not on file Not on file Not on file Travel History Travel Start Travel End No recent travel history available. documented as of this encounter Last Filed Vital Signs Vital Sign Reading Time Taken Comments Blood Pressure 120/74 08/04/2019 2:07 PM EST Pulse 70 08/04/2019 2:07 PM EST Temperature - - Respiratory Rate - - Oxygen Saturation - - Inhaled Oxygen Concentration - - Weight 76.2 kg (168 lb) 08/04/2019 2:07 PM EST Height 177.8 cm (5' 10") 08/04/2019 2:07 PM EST Body Mass Index 24.11 08/04/2019 2:07 PM EST documented in this encounter Patient Instructions Patient InstructionsFrancis Lundberg MD - 08/04/2019 2:00 PM ESTLumbar muscle strain See chiropractor in [place] Do back Exercises Extra strength tylenol 500 mg 2 three times daily As needed Moist heat 15 minutes twice daily documented in this encounter Progress Notes Francis Lundberg MD - 08/04/2019 2:00 PM EST SUBJECTIVE: Shaka Brewster is a 74-y.o. male who complains of low back pain for 1 week(s), positional with bending or lifting, with radiation down the leg right . Precipitating factors: none recalled by the patient. Prior history of back problems: no prior back problems. There is no numbness in the legs. OBJECTIVE: BP 120/74 | Pulse 70 | Ht 5' 10" (1.778 m) | Wt 168 lb (76.2 kg) | BMI 24.11 kg/m Patient appears to be in mild to moderate pain, antalgic gait noted. Lumbosacral spine area reveals no local tenderness or mass. Painful and reduced LS ROM noted. Straight leg raise is negative at 45 degrees on bilateral. DTR's, motor strength and sensation normal, including heel and toe gait. Peripheral pulses are palpable. X-Ray: not indicated. ASSESSMENT: lumbar strain PLAN: reassurance Patient Instructions Lumbar muscle strain See chiropractor in [place] Do back Exercises Extra strength tylenol 500 mg 2 three times daily As needed Moist heat 15 minutes twice daily documented in this encounter Plan of Treatment Date Type Specialty Care Team Description 09/18/2019 [facility] 01/31/2020 Office Visit Arrhythmia Center 02/20/2020 Orders Only Cardiology 02/28/2020 Office Visit Cardiology Alirio Yañez MD [address] [address] [place] [address] [phone] Health Maintenance Due Date Last Done Comments DTaP/Tdap/Td Vaccines (1 - 1954 Tdap) HIV SCREENING 1958 ZOSTER IMMUNIZATION SERIES 1993 (1 of 2) FALL RISK ASSESSMENT 2008 DEPRESSION SCREENING 07/29/2018 07/29/2017 MEDICARE ANNUAL WELLNESS 07/29/2018 07/29/2017, 05/26/2016, VISIT 05/26/2016, Additional history exists Colonoscopy 02/29/2020 02/28/2015, 02/03/2005 (Previously completed), 07/04/2003 (Previously completed) PNEUMOCOCCAL 65+YRS Completed 05/26/2016, 02/04/2012 INFLUENZA VACCINE Completed 05/31/2019, 05/30/2018, 06/03/2017, Additional history exists HEPATITIS A IMMUNIZATION Aged Out No longer eligible SERIES based on patient's age to complete this topic HPV IMMUNIZATION SERIES Aged Out No longer eligible based on patient's age to complete this topic MENINGOCOCCAL VACCINE IMM Aged Out No longer eligible based on patient's age to complete this topic documented as of this encounter Goals Goal Patient Goal Associated Recent Patient-Stated? Author Type Problems Progress Blood Pressure Blood Essential 120/74 No [place], < 140/90 Pressure hypertension (08/04/2019 Francis Alvarez, 2:07 PM EST) Note: Hypertension Care Plan Based on the patient's clinical history and according to JNC 8 guidelines target blood pressure goal is less than 150/90. Based on the patient's last blood pressure of BP: 146/64 mmHg the patient is at at goal. As your provider, it is important that I advise you regarding: your current medications and help you with any challenges you may face taking your medications as directed (ex. instructions, cost, side effects, and interactions). Important lifestyle changes: exercise, weight reduction, diet and dietary sodium reduction your clinical goals and how you can achieve success: weight reduction, exercise plan and diet improvements medication management: N/A diet only patient education/self-management tools provided: Current self-management tools adequate To successfully manage my Hypertension I will: monitor my blood pressure daily, understanding that my goal is less than 140/ 90 per my healthcare provider's recommendation. I will schedule an appointment with my provider if consistent abnormal readings greater than 160/100. take medications every day as prescribed by my healthcare provider and if unable to take them I will discuss with my provider. monitor for symptoms of chest pain, chest tightness/pressure, irregular heartbeat, persistent dizziness, radiating arm pain, and neck or jaw pain. If any of these symptoms are noticed I will seek medical attention immediately by calling 911 exercise/walk 30 minutes 7 day(s) per week. If I experience chest pain, chest tightness, or shortness of breath, I will seek medical attention immediately. follow a diet rich in fruits, vegetables, and low-fat dairy products with reduced content of saturated & total fat. I will reduce my sodium intake daily. An example is the DASH diet. To obtain more information please refer to the DASH Eating Plan listed in Educational Resources. record my blood pressure results. Anctu is safe and secure way for you to do this in your medical record online. try to obtain an ideal body weight. My recent weight was . My weight loss goal for my next office visit is 160 lb . limit alcohol consumption. For men two drinks per day and women one drink per day. if currently smoking, will discuss how to quit smoking with my healthcare provider and work towards quitting. Educational Resources: National Heart, Lung, & Blood [place] http://nhlbi.nih.gov/hbp/index.html The DASH Diet Eating Plan http://www.nhlbi.nih.gov/health/health-topics/ topics/dash/ Academy of Nutrition & DIetetics http://eatright.org National Smoking Cessation Site http://smokefree.gov Blood Pressure < Blood Pressure 120/74 (08/04/2019 2:07 Francis Murphy, 150/90 PM EST) Note: This is an individualized treatment (blood pressure) goal for Shaka Brewster: Displayed above (on the left) is your goal for blood pressure control. Your most recent blood pressure is also shown above, on the right. You should try to achieve blood pressures that are lower than your goal listed above (on the left). Take all prescribed medications as Self-management Francis Murphy MD directed Note: This is an individualized self-management goal for Shaka Brewster: Please take all prescribed medications as directed. 1. Do not skip doses. If you cannot afford your medications, talk with your doctor. 2. Use a pill reminder system such as a pill box if needed. Your pharmacist can help you with this. 3. Contact your Pharmacy 5 days before your medication runs out. If you cannot take your medications for any reasons, talk with your doctor. 4. Please bring all of your medication bottles and inhalers (or a list of all your medications/inhalers) with you to every visit. Potential barriers to meeting all of your care plan goals will continue to be addressed on an ongoing basis. documented as of this encounter Implants Implanted Type Area Critical Care Cns Device Shelf Model / Identifier Expiration Serial / Date Lot Arnoldo Rodheidi [id number] - [id number] Left: [employer], [id number] / Implanted: Qty: 1 on 04/22/2018 by Amos Martinez MD at [facility] [employer] [id number] / Lead, Tendril Mri [id number] - [id number] Left: [employer], [id number] / Implanted: Qty: 1 on 04/22/2018 by Amos Martinez MD at [facility] [employer] [id number] / Lda 210q/65 [employer] - [id number] Left: [employer], [id number] / Implanted: Qty: 1 on 04/22/2018 by Amos Martinez MD at [facility] [employer] [id number] / documented as of this encounter Results Not on filedocumented in this encounter Visit Diagnoses Diagnosis Strain of lumbar region, initial encounter documented in this encounter Insurance Payer Benefit Plan / Subscriber ID Effective Dates Phone Address Type Group MEDICARE MEDICARE PART A & B xxxxxxxxxxx 2008-Present Medicare [facility] xxxxxxxxx 2017-Present [place] Guarantor Name Account Type Relation to Date of Phone Billing Patient Address Shaka Brewster Personal/Family 1945 [address] (Home) [place], [place] [phone] [id number] (Work) documented as of this encounter
[2019-08-05 14:06] VITALS: BP 130/79
== END 2019-08-05 14:03 | disposition home or self-care (01) ==
LOC: ED 12:05
DX: M54.5 Low back pain (principal); Z88.0 Allergy status to penicillin; Z88.2 Allergy status to sulfonamides; Z95.810 Presence of automatic (implantable) cardiac defibrillator; F03.90 Unspecified dementia, unspecified severity, without behavioral disturbance, psychotic disturbance, mood disturbance, and anxiety
CPT/HCPCS: 72110; 99282